=== PATIENT | female | born 1955 | race Caucasian/White ===

== ENCOUNTER 2018-01-18 11:16 | Emergency (ER) | payer BC ==
[~2018-01-18] VITALS: Ht 149.9 cm; Wt 79.4 kg
[~2018-01-18 11:16] MED LIST: ESOM20CA PO; SERT25TA PO
[2018-01-18 12:31] LABS: BASO # 0.1 x10^3/uL (0.0-0.2); BASO % 1 % (0-3); EOS % 0 % (0-3); HEMATOCRIT 30.9 % (36.0-47.0); HEMOGLOBIN 10.3 g/dL (12.0-15.5); LYMPH # 3.7 x10^3/uL (1.0-4.8); LYMPH % 57 % (24-48); MEAN CORPUSCULAR HEMOGLOBIN 27 pg (25-35); MEAN CORPUSCULAR HGB CONC 33 g/dL (31-37); MEAN CORPUSCULAR VOLUME 80 fL (79-100); MONO # 0.4 x10^3/uL (0.0-1.1); MONO % 6 % (0-9); NEUT # 2.4 x10^3uL (1.8-7.7); NEUT % 36 % (31-73); PLATELET COUNT 221 x10^3/uL (140-400); RED BLOOD COUNT 3.88 x10^6/uL (3.50-5.40); RED CELL DISTRIBUTION WIDTH 21.3 % (11.5-14.5); WHITE BLOOD COUNT 6.6 x10^3/uL (4.0-11.0)
--- NOTE | 2018-01-18 12:39 | PHYS DOC ---
Past Medical History Past Medical History: No Pertinent History Additional Past Surgical Histo: BREAST REDUCTION/IMPLANTS Alcohol Use: None Drug Use: None Adult General Chief Complaint Chief Complaint: NAUSEA/VOMITING/DIARRHA HPI HPI 62-year-old female presenting the emergency department today with nausea and diarrhea for approximately 2 weeks. She was taking methotrexate prior to her symptoms starting. She then saw her doctor took her off of the methotrexate. She continues to have symptoms. She has had a low-grade temperature at home and has one here. She denies abdominal pain chest pain or any pain. She generally feels weak and malaise. Her diarrhea is nonbloody. She denies recent antibiotic use. She denies any previous abdominal surgeries. Review of systems is negative for chest pain shortness of breath cough headache neck stiffness. All other review of systems is negative unless otherwise noted in history of present illness. ED course: 62-year-old female presenting to the emergency department today with nausea and malaise and diarrhea. On arrival she has a mild low-grade temperature. Heart rate within normal limits. Blood work sent along with CT abdomen pelvis ordered. CBC shows normal white count. Hemoglobin at 10. No baseline for comparison. Patient reports being on iron pill though on the past. Chemistry panel shows mildly low potassium. Urinalysis shows mild dehydration. CT abdomen pelvis negative for acute pathology. On reexamination the patient is feeling better. We will discharge the patient home to follow up with PCP in 2-3 days. The patient has been examined and was not found to have an emergency medical condition. The patient was then discharged home in stable condition to follow up with their primary care physician over the next 2-3 days. They were to return if their symptoms worsened or if they were concerned for any reason. They were also instructed to return to the emergency department if they were unable to get the recommended and appropriate follow-up. [id number] discharge instructions and return precautions were given. Patient's questions were answered to their satisfaction. Patient is comfortable with plan. Review of Systems Review of Systems SEE ABOVE. Current Medications Current Medications Current Medications Medications (Trade) Dose Ordered Sig/Flores Start Time Stop Time Status Last Admin Dose Admin Info (CONTRAST GIVEN -- Rx MONITORING) 1 each PRN DAILY PRN 01/18/18 13:15 01/20/18 13:14 Iohexol (Omnipaque 300 Mg/ml) 75 ml 1X ONCE 01/18/18 13:15 01/18/18 13:16 DC 01/18/18 13:29 75 ML Ondansetron HCl (Zofran) 4 mg 1X ONCE 01/18/18 12:45 01/18/18 12:46 DC 01/18/18 12:54 4 MG Sodium Chloride 500 ml @ 500 mls/hr 1X ONCE 01/18/18 12:45 01/18/18 13:44 DC 01/18/18 12:54 500 MLS/HR Allergies Allergies Allergies Coded Allergies Type Severity Reaction Last Updated Verified No Known Drug Allergies 12/10/15 No Physical Exam Physical Exam SEE ABOVE Constitutional: Well developed, well nourished, no acute distress, non-toxic appearance. [] HENT: Normocephalic, atraumatic, bilateral external ears normal, oropharynx moist, no oral exudates, nose normal. [] Eyes: PERRLA, EOMI, conjunctiva normal, no discharge. [] Neck: Normal range of motion, no tenderness, supple, no stridor. [] Cardiovascular:Heart rate regular rhythm, no murmur [] Lungs & Thorax: Bilateral breath sounds clear to auscultation [] Abdomen: Bowel sounds normal, soft, no tenderness, no masses, no pulsatile masses. Nondistended. No rebound tenderness. no guarding. Skin: Warm, dry, no erythema, no rash. [] Back: No tenderness, no CVA tenderness. [] Extremities: No tenderness, no cyanosis, no clubbing, ROM intact, no edema. [] Neurologic: Alert and oriented X 3, normal motor function, normal sensory function, no focal deficits noted. [] Psychologic: Affect normal, judgement normal, mood normal. [] Current Patient Data Vital Signs Vital Signs Date Time Temp Pulse Resp B/P (MAP) Pulse Ox O2 Delivery O2 Flow Rate FiO2 01/18/18 15:48 82 20 108/54 (72) 94 Room Air 01/18/18 11:51 100.1 100.1 Lab Values Laboratory Tests Test 01/18/18 12:15 01/18/18 15:34 White Blood Count 6.6 x10^3/uL (4.0-11.0) Red Blood Count 3.88 x10^6/uL (3.50-5.40) Hemoglobin 10.3 g/dL (12.0-15.5) L Hematocrit 30.9 % (36.0-47.0) L Mean Corpuscular Volume 80 fL (79-100) Mean Corpuscular Hemoglobin 27 pg (25-35) Mean Corpuscular Hemoglobin Concent 33 g/dL (31-37) Red Cell Distribution Width 21.3 % (11.5-14.5) H Platelet Count 221 x10^3/uL (140-400) Neutrophils (%) (Auto) 36 % (31-73) Lymphocytes (%) (Auto) 57 % (24-48) H Monocytes (%) (Auto) 6 % (0-9) Eosinophils (%) (Auto) 0 % (0-3) Basophils (%) (Auto) 1 % (0-3) Neutrophils # (Auto) 2.4 x10^3uL (1.8-7.7) Lymphocytes # (Auto) 3.7 x10^3/uL (1.0-4.8) Monocytes # (Auto) 0.4 x10^3/uL (0.0-1.1) Eosinophils # (Auto) 0.0 x10^3/uL (0.0-0.7) Basophils # (Auto) 0.1 x10^3/uL (0.0-0.2) Segmented Neutrophils % 36 % (35-66) Band Neutrophils % 9 % (0-9) Lymphocytes % 26 % (24-48) Atypical Lymphocytes % (Manual) 25 % (0-0) H Monocytes % 4 % (0-10) Platelet Estimate Adequate (ADEQUATE) Large Platelets Present Anisocytosis Present Sodium Level 138 mmol/L (136-145) Potassium Level 3.2 mmol/L (3.5-5.1) L Chloride Level 101 mmol/L (98-107) Carbon Dioxide Level 27 mmol/L (21-32) Anion Gap 10 (6-14) Blood Urea Nitrogen 10 mg/dL (7-20) Creatinine 0.7 mg/dL (0.6-1.0) Estimated GFR (Cockcroft-Gault) 84.5 Glucose Level 119 mg/dL (70-99) H Calcium Level 8.4 mg/dL (8.5-10.1) L Total Bilirubin 0.4 mg/dL (0.2-1.0) Direct Bilirubin 0.1 mg/dL (0.0-0.2) Aspartate Amino Transferase (AST) 49 U/L (15-37) H Alanine Aminotransferase (ALT) 55 U/L (14-59) Alkaline Phosphatase 73 U/L (46-116) Total Protein 6.5 g/dL (6.4-8.2) Albumin 2.9 g/dL (3.4-5.0) L Urine Collection Type Unknown Urine Color Yellow Urine Clarity Clear Urine pH 6.0 Urine Specific [place] >=1.030 Urine Protein 30 mg/dL (NEG-TRACE) Urine Glucose (UA) Negative mg/dL (NEG) Urine Ketones (Stick) Negative mg/dL (NEG) Urine Blood Negative (NEG) Urine Nitrite Negative (NEG) Urine Bilirubin Negative (NEG) Urine Urobilinogen Dipstick 0.2 mg/dL (0.2 mg/dL) Urine Leukocyte Esterase Negative (NEG) Urine RBC 0 /HPF (0-2) Urine WBC 1-4 /HPF (0-4) Urine Squamous Epithelial Cells Mod /LPF Urine Bacteria Few /HPF (0-FEW) Urine Mucus Slight /LPF Laboratory Tests 01/18/18 12:15 Laboratory Tests 01/18/18 12:15 EKG EKG [] Radiology/Procedures Radiology/Procedures [] Course & Med Decision Making Course & Med Decision Making Pertinent Labs and Imaging studies reviewed. (See chart for details) [] Dragon Disclaimer Dragon Disclaimer This electronic medical record was generated, in whole or in part, using a voice recognition dictation system. Departure Departure Impression: Primary Impression: Diarrhea Additional Impressions: Malaise Dehydration Hypokalemia Disposition: 01 HOME, SELF-CARE Condition: STABLE Referrals: CRYSTAL BETANCUR MD (PCP) Scripts Potassium Chloride (POTASSIUM CHLORIDE) 10 Meq Tab.sr.24h 10 MEQ PO DAILY for 5 Days, #5 TAB.SR Prov: ARRON JIN MD 01/18/18 Problem Qualifiers ARRON JIN MD Jan 18, 2018 12:39
[2018-01-18 12:45] LABS: CALCIUM 8.4 mg/dL (8.5-10.1); CREATININE 0.7 mg/dL (0.6-1.0); GFR 84.5; POTASSIUM 3.2 mmol/L (3.5-5.1)
[2018-01-18] MEDS ORDERED: ONDANSETRON PF 4 MG/2 ML VIAL. IV ONE (12:45)
[2018-01-18] MEDS ORDERED: IV NORMAL SALINE 500ML BAG 500 ML IV ONE (12:45)
[2018-01-18 12:50] LABS: ALBUMIN 2.9 g/dL (3.4-5.0); DIRECT BILIRUBIN 0.1 mg/dL (0.0-0.2); TOTAL BILIRUBIN 0.4 mg/dL (0.2-1.0); TOTAL PROTEIN 6.5 g/dL (6.4-8.2)
[2018-01-18] MEDS ORDERED: IOHEXOL 300 MG/ML 100ML VIAL. IV ONE (13:15)
[2018-01-18] MEDS ORDERED: CONTRAST GIVEN. MC PRN (13:15)
[2018-01-18 13:21] LABS: % ATYL 25 % (0-0); % BANDS 9 % (0-9); % LYMPHS 26 % (24-48); % MONOS 4 % (0-10); % SEGS 36 % (35-66); PLT ESTIMATE ADEQUATE (ADEQUATE)
[2018-01-18 13:28] LABS: ANISOCYTOSIS PRESENT
--- NOTE | 2018-01-18 13:49 | RAD ---
CT scan of the abdomen and pelvis with contrast 01/18/2018 CLINICAL HISTORY: Nausea, vomiting and diarrhea with fevers TECHNIQUE: After the intravenous administration of 75 cc of Omnipaque 300, contiguous, 5 mm axial sections were obtained through abdomen and pelvis. 75 cc of Omnipaque 300 were administered intravenously during this examination. One or more of the following individualized dose reduction techniques were utilized for this study: 1. Automated exposure control. 2. Adjustment of the mA and/or kV according to patient size. 3. Use of iterative reconstruction technique. FINDINGS: Comparison is made to an ultrasound of the right upper quadrant of the abdomen dated 12/07/2015. The absence of oral contrast material limits the study for the detection of bowel pathology. Images through the lung bases demonstrate minimal dependent subsegmental atelectasis bilaterally. The liver is mildly enlarged measuring 22 cm in length. Decreased attenuation of the brain liver parenchyma is seen consistent with fatty infiltration. The spleen is mildly enlarged measuring 16.4 cm in greatest diameter. The pancreas, adrenal glands and kidneys are within normal limits. Atherosclerotic calcification of the abdominal aorta is seen. The abdominal aorta tapers normally. Small calcified gallstones are seen within the gallbladder. The gallbladder slightly contracted. No free fluid or free air is within the abdomen. There is no evidence of bowel obstruction. Scattered diverticula are seen involving the colon. No inflammatory changes are seen in the adjacent fat. The appendix is well-visualized and is within normal limits. Images through the pelvis demonstrate the urinary bladder to be slightly contracted. A 1.4 cm calcification is seen within the anterior uterine body consistent with a fibroid. No adnexal mass is seen. Calcifications are seen within the pelvis consistent with phleboliths. No free fluid is noted. Degenerative changes are seen involving the thoracic and throughout the lumbar spine and both hips. IMPRESSION: No acute abnormality is seen. Electronically signed by: Jm Orona MD (01/18/2018 1:46 PM) [id number]
[2018-01-18 15:43] LABS: BILIRUBIN,URINE NEGATIVE (NEG); CLARITY,URINE CLEAR; COLOR,URINE YELLOW; NITRITE,URINE NEGATIVE (NEG); PROTEIN,URINE 30 mg/dL (NEG-TRACE); UROBILINOGEN,URINE 0.2 mg/dL (0.2 mg/dL)
[2018-01-18 16:10] LABS: BACTERIA,URINE FEW /HPF (0-FEW); RBC,URINE 0 /HPF (0-2); SQUAMOUS EPITHELIAL CELL,UR MOD /LPF
[2018-01-18 16:48] VITALS: BP 110/51
[2018-01-18] MEDS ORDERED: POTA10TA12 PO (16:54)
== END 2018-01-18 17:00 | disposition home or self-care (01) ==
LOC: ER 11:16
DX: R19.7 Diarrhea, unspecified (principal); E86.0 Dehydration; E87.6 Hypokalemia; R53.81 Other malaise; Z98.82 Breast implant status
CPT/HCPCS: 36415; 74177; 80048; 80076; 81001; 85007; 85025; 96361; 96374; 99285; J2405; J7040; Q9967

== ENCOUNTER → 2018-09-19 | Outpatient (CLI) | payer BC ==
[~2018-09-19] MED LIST changes: +POTA10TA12 PO
--- NOTE | 2018-09-19 15:30 | KCIC ---
Bilateral digital screening mammograms with 3-D tomosynthesis: Reason for examination: Routine screening. Comparison is made to previous study dated 03/23/2015. Bilateral mammograms in CC and oblique projections were obtained with 2-D imaging and 3-D tomosynthesis imaging on a [employer] unit and reviewed on the workstation. Interpretation was made with the benefit of CAD. The skin and nipples show no abnormalities. No abnormal axillary lymph nodes are seen. Bilateral breast implants remain present. Bulging is again seen at the inferior aspect of the right breast implant. The breast parenchyma is predominantly fatty. (Breast density: Category A.) There are no dominant masses, suspicious calcifications or architectural distortion. Impression: No evidence of malignancy. Recommend routine screening. BI-RAD Category 1: Negative. "Our facility is accredited by the [employer] Mammography Program." This patient's information has been entered into a reminder system for the patient to be notified with the results of her examination and a target date for the next mammogram. Electronically signed by: Dot Quintero MD (09/19/2018 3:27 PM) [id number]
== END | disposition home or self-care (01) ==
LOC: KCIC MAMMO 12:13
PROVIDERS: ATTEND Family Medicine
DX: Z12.31 Encounter for screening mammogram for malignant neoplasm of breast (principal); Z98.82 Breast implant status
CPT/HCPCS: 77063; 77067

== ENCOUNTER 2019-01-11 22:49 | Inpatient (IN) | payer MEDICARE, BC ==
[~2019-01-11] VITALS: Ht 180.3 cm; Wt 93.2 kg
[2019-01-12] MEDS ORDERED: IV NORMAL SALINE 1000ML BAG 1,000 ML IV ONE (00:15)
[2019-01-12] MEDS ORDERED: fentaNYL PF VIAL 100 MCG/2 ML VIAL IVP ONE (00:15)
[2019-01-12] MEDS ORDERED: ONDANSETRON PF 4 MG/2 ML VIAL. IV ONE (00:15)
--- NOTE | 2019-01-12 00:49 | PHYS DOC ---
Past Medical History Past Medical History: Anxiety, GERD Past Surgical History: No Surgical History Additional Past Surgical Histo: BREAST REDUCTION/IMPLANTS Alcohol Use: None Drug Use: None Adult General Chief Complaint Chief Complaint: LOWER EXTREMITY SWELLING HPI HPI Patient is a 63 year old female who presents with states for the last 3 days she's noticed her left leg having redness with non-open blisters to the lower chaudhary and 2+ swelling. Patient states the leg is now very painful with burning and itching. Patient denies any injury or wound or bite to leg. States her only history of psoriasis and depression. Review of Systems Review of Systems Constitutional: fever or chills [] Integument: Cellulitis to left leg. Denies rash or skin lesions [] All other systems were reviewed and found to be within normal limits, except as documented in this note. Current Medications Current Medications Current Medications Medications (Trade) Dose Ordered Sig/Folres Start Time Stop Time Status Last Admin Dose Admin Fentanyl Citrate (Fentanyl 2ml Vial) 50 mcg 1X ONCE 01/12/19 00:15 01/12/19 00:16 DC Ondansetron HCl (Zofran) 4 mg 1X ONCE 01/12/19 00:15 01/12/19 00:16 DC 01/12/19 00:44 4 MG Sodium Chloride 1,000 ml @ 1,000 mls/hr 1X ONCE 01/12/19 00:15 01/12/19 01:14 DC 01/12/19 00:44 1,000 MLS/HR Vancomycin HCl (Vanco Per Pharmacy) 1 each PRN DAILY PRN 01/12/19 01:00 UNV Vancomycin HCl 1.75 gm/Sodium Chloride 500 ml @ 250 mls/hr 1X ONCE 01/12/19 01:00 01/12/19 02:59 Allergies Allergies Allergies Coded Allergies Type Severity Reaction Last Updated Verified No Known Drug Allergies 12/10/15 No Physical Exam Physical Exam Constitutional: Well developed, well nourished, no acute distress, non-toxic appearance. [] Cardiovascular:Heart rate regular rhythm, no murmur [] Lungs & Thorax: Bilateral breath sounds clear to auscultation [] Abdomen: Bowel sounds normal, soft, no tenderness, no masses, no pulsatile masses. [] Skin: Cellulitis to left lower leg that extends to medial knee. Warm, dry, no erythema, no rash. [] Extremities: Low left leg tenderness, no cyanosis, no clubbing, ROM intact, Left low leg edema. [] Neurologic: Alert and oriented X 3, normal motor function, normal sensory function, no focal deficits noted. [] Psychologic: Affect normal, judgement normal, mood normal. [] Current Patient Data Vital Signs Vital Signs Date Time Temp Pulse Resp B/P (MAP) Pulse Ox O2 Delivery O2 Flow Rate FiO2 01/12/19 00:30 78 16 150/87 (108) 96 Room Air 01/11/19 23:25 99.6 99.6 Lab Values Laboratory Tests Test 01/12/19 00:20 White Blood Count 9.0 x10^3/uL (4.0-11.0) Red Blood Count 4.24 x10^6/uL (3.50-5.40) Hemoglobin 11.5 g/dL (12.0-15.5) L Hematocrit 35.0 % (36.0-47.0) L Mean Corpuscular Volume 82 fL (79-100) Mean Corpuscular Hemoglobin 27 pg (25-35) Mean Corpuscular Hemoglobin Concent 33 g/dL (31-37) Red Cell Distribution Width 15.4 % (11.5-14.5) H Platelet Count 307 x10^3/uL (140-400) Neutrophils (%) (Auto) 70 % (31-73) Lymphocytes (%) (Auto) 22 % (24-48) L Monocytes (%) (Auto) 7 % (0-9) Eosinophils (%) (Auto) 1 % (0-3) Basophils (%) (Auto) 0 % (0-3) Neutrophils # (Auto) 6.4 x10^3/uL (1.8-7.7) Lymphocytes # (Auto) 2.0 x10^3/uL (1.0-4.8) Monocytes # (Auto) 0.6 x10^3/uL (0.0-1.1) Eosinophils # (Auto) 0.1 x10^3/uL (0.0-0.7) Basophils # (Auto) 0.0 x10^3/uL (0.0-0.2) Laboratory Tests 01/12/19 00:20 EKG EKG [] Radiology/Procedures Radiology/Procedures [] Impressions: [facility] [address] [place] [address] IMAGING REPORT Signed PATIENT: MAU AYALA EACCOUNT: [id number] : 1955 LOCATION: ER AGE: 63 SEX: F EXAM STATUS: REG ER ORD. PHYSICIAN: JUAN PABLO ARMENDARIZ APRN REASON: swelling, pain PROCEDURE: VENOUS LOWER EXTREMITY LEFT Ultrasound venous Doppler INDICATION:Left leg pain, redness and swelling. TECHNIQUE: Grayscale, color Doppler and spectral waveform ultrasound images of the lower extremities deep veins obtained. COMPARISON: None FINDINGS: The interrogated deep veins are compressible and demonstrate evidence of blood flow with normal respiratory variation and response to augmentation. Mildly enlarged left groin lymph nodes are seen most likely reactive. IMPRESSION: No sonographic evidence of acute DVT of the left lower extremity deep veins. Electronically signed by: Yong Rehman DO (01/12/2019 12:45 AM) [facility] DICTATED and SIGNED BY: YONG REHMAN DO DATE: 01/12/19 0045 Course & Med Decision Making Course & Med Decision Making Patient has redness to the left leg that it extends up to the knee. 2+ swelling. Pedal pulses are present. Cap refill less than 3 seconds. There is tenderness to the whole lower leg redness also extends around the whole lower leg. There is no draining fluid. Patient states she's been running a fever and she is nauseated. Patient denies vomiting, abdominal pain, diarrhea, shortness of air, chest pain, dizziness, headache. Patient is ambulatory with a steady gait but the left leg is very painful. Clear to auscultation all lobes. Patient rates her pain a 10 out of 10. Patients temperature is 99.6. Have spoken to Dr. Betancur for admission. I started the patient on vancomycin antibiotic and fluids. Patient refusing any pain medication at this time. I have also reported this patient off to Dr. Soria has not all the lab results are back at this time. Dragon Disclaimer Dragon Disclaimer This electronic medical record was generated, in whole or in part, using a voice recognition dictation system. Departure Departure Impression: Primary Impression: Cellulitis Disposition: ADMITTED INPATIENT Admitting Physician: Lorenzo, Crystal Condition: STABLE Referrals: CRYSTAL BETANCUR MD (PCP) Problem Qualifiers Primary Impression: Cellulitis Site of cellulitis: extremity Site of cellulitis of extremity: lower extremity Laterality: left Qualified Codes: L03.116 - Cellulitis of left lower limb JUAN PABLO ARMENDARIZ APRN Jan 12, 2019 00:49
[2019-01-12 00:50] LABS: BASO % 0 % (0-3); EOS # 0.1 x10^3/uL (0.0-0.7); EOS % 1 % (0-3); HEMOGLOBIN 11.5 g/dL (12.0-15.5); LYMPH % 22 % (24-48); MEAN CORPUSCULAR HEMOGLOBIN 27 pg (25-35); MEAN CORPUSCULAR HGB CONC 33 g/dL (31-37); MEAN CORPUSCULAR VOLUME 82 fL (79-100); MONO # 0.6 x10^3/uL (0.0-1.1); MONO % 7 % (0-9); NEUT # 6.4 x10^3/uL (1.8-7.7); NEUT % 70 % (31-73); PLATELET COUNT 307 x10^3/uL (140-400); RED BLOOD COUNT 4.24 x10^6/uL (3.50-5.40); RED CELL DISTRIBUTION WIDTH 15.4 % (11.5-14.5)
[2019-01-12] MEDS ORDERED: VANCOMYCIN 1.75 GM in IV NORMAL SALINE 500ML BAG 500 ML IV ONE (01:00)
[2019-01-12] MEDS ORDERED: VANCOMYCIN PER PHARMACY MC PRN (01:00)
[2019-01-12] MEDS ORDERED: fentaNYL PF VIAL 100 MCG/2 ML VIAL IV PRN (01:15)
[2019-01-12] MEDS ORDERED: ACETAMINOPHEN 325 MG TABLET. PO PRN (01:15)
[2019-01-12] MEDS ORDERED: ONDANSETRON PF 4 MG/2 ML VIAL. IV PRN (01:15)
[2019-01-12 01:45] LABS: CALCIUM 9.5 mg/dL (8.5-10.1); CREATININE 0.6 mg/dL (0.6-1.0); GFR 100.6; POTASSIUM 4.1 mmol/L (3.5-5.1)
[2019-01-12 01:52] LABS: ALBUMIN 3.7 g/dL (3.4-5.0); ALBUMIN/GLOBULIN RATIO 0.9 (1.0-1.7); TOTAL BILIRUBIN 0.5 mg/dL (0.2-1.0); TOTAL PROTEIN 7.8 g/dL (6.4-8.2)
--- NOTE | 2019-01-12 02:05 | NUR ---
Pt. arrived on unit at 0205 by wheelchair with Mikhail. Pt. is A&Ox4, on RA & VSS. Pt. rates pain 4/10 but refuses any pain medication. Assessment done at this time. Pt.'s will stay the rest of the night. WIll continue to monitor.
--- NOTE | 2019-01-12 02:26 | NUR ---
Currently uses e-cigarettes but trying to quit. Addendum: 01/12/19 at 0238 by WINSOME ZIMMERMAN RN Amended: Links added.
[2019-01-12 02:41] VITALS: BP 141/56
--- NOTE | 2019-01-12 03:00 | NUR ---
Pharmacy Vancomycin Dosing Note S:Consulted to monitor and dose vancomycin started 01/12/19. O:MAU AYALA is a 63 year old F with Cellulitis . Height: 5 feet, 11 inches Weight: 93.510585 kg [place] Body Weight: 70.80 Adjusted Body Weight: 79.68 Dosing Weight: Actual Other Antibiotics: LABS: Last BUN: 14 Last Creatinine: 0.6 Creatinine Clearance: 119 mL/min Last WBC: 9.0 Last Procalcitonin: Tmax (past 24 hours): Microbiology: I/O: Drug Levels: Last level: on at Last dose given at Vancomycin Dosing: Loading Dose: 1750 mg x1 01/12/19 0115 Dosing Weight: Actual Target Trough: 10-20 A: Based on: Aactual Wt and CrCl P: 1. 1330 Vancomycin 1500 mg IV q12h 2. Follow up Trough level on 01/13/19 at 1300 3. Pharmacy will continue to monitor, follow and adjust therapy as needed. DES AGUILAR RPH, 01/12/19 0300 Signed: 01/12/19 at 0301 by DES AGUILAR RPH PHA
[2019-01-12 07:00] VITALS: BP 133/69
[2019-01-12] MEDS ORDERED: FLU VAX QS 2019-20 (36MOS+)/PF 0.5 ML SYRINGE. VAX IM ONE (09:00)
[2019-01-12] MEDS: PANTOPRAZOLE 40 MG TABLET.DR. PO SCH (09:06)
[2019-01-12] MEDS: SERTRALINE 25 MG TABLET. PO SCH (09:06)
--- NOTE | 2019-01-12 10:16 | HP ---
ADMIT DATE: 01/12/2019 CHIEF COMPLAINT AND HISTORY OF PRESENT ILLNESS: This 63-year-old white female, patient of Dr. Crystal Betancur had the onset of left leg redness in the calf area 2-3 days prior to admission. It continued to spread. She developed fevers, chills, sweats as well as burning and itching at the site. She denies any history of wound, does have psoriasis, but no significant psoriasis other than part of her body where the cellulitis is of her lower leg. She was found to have cellulitis and admitted for IV antibiotics. PAST MEDICAL HISTORY: Remarkable for the psoriasis, anxiety, GERD. PAST SURGICAL HISTORY: She has had prior breast reduction with implants. MEDICATIONS: Brought with the patient, listed on the computer and have been addressed. ALLERGIES: SHE IS ALLERGIC TO METHOTREXATE. SOCIAL HISTORY: Noncontributory. FAMILY HISTORY: Noncontributory. REVIEW OF SYSTEMS: As mentioned above. PHYSICAL EXAMINATION: GENERAL: She is a well-developed, well-nourished white female, in no acute distress. is present during the exam. HEAD, EYES, EARS, NOSE AND THROAT: Unremarkable. NECK: Supple, without adenopathy or thyromegaly. CHEST: Clear to auscultation and percussion. HEART: Regular rate and rhythm without S3, S4 or murmur. ABDOMEN: Soft, nontender, without hepatosplenomegaly or masses. EXTREMITIES: Reveal cellulitis, left lower leg that extends up to the knee and into the thigh, probably 3-4 inches in addition. NEUROLOGIC: She is intact. LABORATORY DATA: Initial imaging in the Emergency Room is remarkable for an ultrasound of the left lower extremity, ruling out a DVT. White count is 9000 on admission with a relatively normal differential. Chemistry panel other than a blood sugar of 166 is unremarkable. Lactic acid was 1.9. IMPRESSION: Cellulitis of the left lower extremity with fevers, chills, etc. PLAN: The patient has been admitted, broad spectrum antibiotics will be ongoing and the patient will be monitored, managed and treated appropriately. SATHYA AVITIA MD DR: SEBASTIAN/marco a JOB#: [id number] / [id number] ecc CRYSTAL BETANCUR MD
--- NOTE | 2019-01-12 10:52 | PDOC ---
Infectious Disease Note Subjective: Subjective Pt seen and examined Vital Signs: Vital Signs Vital Signs Date Time Temp Pulse Resp B/P (MAP) Pulse Ox O2 Delivery O2 Flow Rate FiO2 01/12/19 07:00 98.7 77 16 133/69 (90) 92 Room Air 98.7 Medications: Inpatient Meds: Current Medications Medications (Trade) Dose Ordered Sig/Flores Start Time Stop Time Status Last Admin Dose Admin Acetaminophen (Tylenol) 650 mg PRN Q4HRS PRN 01/12/19 01:15 01/13/19 01:14 Fentanyl Citrate (Fentanyl 2ml Vial) 50 mcg PRN Q1HR PRN 01/12/19 01:15 01/13/19 01:14 Influenza Virus Vaccine Quadrival (Afluria Quad 2019-20 (3yr Up) Syringe) 0.5 ml ONCE ONCE 01/12/19 09:00 01/12/19 09:01 DC 01/12/19 09:09 0.5 ML Ondansetron HCl (Zofran) 4 mg PRN Q8HRS PRN 01/12/19 01:15 01/13/19 01:14 Pantoprazole Sodium (Protonix) 40 mg DAILYAC 01/12/19 07:30 01/12/19 09:06 40 MG Sertraline HCl (Zoloft) 25 mg DAILY 01/12/19 09:00 01/12/19 09:06 25 MG Sodium Chloride 1,000 ml @ 1,000 mls/hr 1X ONCE 01/12/19 00:15 01/12/19 01:14 DC 01/12/19 00:44 1,000 MLS/HR Vancomycin HCl (Vanco Per Pharmacy) 1 each PRN DAILY PRN 01/12/19 01:00 01/12/19 02:57 1 EACH Vancomycin HCl (Vancomycin Trough Level) 1 each 1X ONCE 01/13/19 13:00 01/13/19 13:01 Vancomycin HCl 1.5 gm/Sodium Chloride 500 ml @ 250 mls/hr Q12H 01/12/19 13:30 01/12/19 10:49 DC Vancomycin HCl 1.75 gm/Sodium Chloride 500 ml @ 250 mls/hr 1X ONCE 01/12/19 01:00 01/12/19 02:59 DC 01/12/19 01:15 250 MLS/HR Labs: Lab Laboratory Tests Test 01/12/19 00:20 White Blood Count 9.0 x10^3/uL (4.0-11.0) Red Blood Count 4.24 x10^6/uL (3.50-5.40) Hemoglobin 11.5 g/dL (12.0-15.5) Hematocrit 35.0 % (36.0-47.0) Mean Corpuscular Volume 82 fL (79-100) Mean Corpuscular Hemoglobin 27 pg (25-35) Mean Corpuscular Hemoglobin Concent 33 g/dL (31-37) Red Cell Distribution Width 15.4 % (11.5-14.5) Platelet Count 307 x10^3/uL (140-400) Neutrophils (%) (Auto) 70 % (31-73) Lymphocytes (%) (Auto) 22 % (24-48) Monocytes (%) (Auto) 7 % (0-9) Eosinophils (%) (Auto) 1 % (0-3) Basophils (%) (Auto) 0 % (0-3) Neutrophils # (Auto) 6.4 x10^3/uL (1.8-7.7) Lymphocytes # (Auto) 2.0 x10^3/uL (1.0-4.8) Monocytes # (Auto) 0.6 x10^3/uL (0.0-1.1) Eosinophils # (Auto) 0.1 x10^3/uL (0.0-0.7) Basophils # (Auto) 0.0 x10^3/uL (0.0-0.2) Sodium Level 138 mmol/L (136-145) Potassium Level 4.1 mmol/L (3.5-5.1) Chloride Level 102 mmol/L (98-107) Carbon Dioxide Level 23 mmol/L (21-32) Anion Gap 13 (6-14) Blood Urea Nitrogen 14 mg/dL (7-20) Creatinine 0.6 mg/dL (0.6-1.0) Estimated GFR (Cockcroft-Gault) 100.6 BUN/Creatinine Ratio 23 (6-20) Glucose Level 166 mg/dL (70-99) Lactic Acid Level 1.9 mmol/L (0.4-2.0) Calcium Level 9.5 mg/dL (8.5-10.1) Total Bilirubin 0.5 mg/dL (0.2-1.0) Aspartate Amino Transf (AST/SGOT) 37 U/L (15-37) Alanine Aminotransferase (ALT/SGPT) 58 U/L (14-59) Alkaline Phosphatase 97 U/L (46-116) Total Protein 7.8 g/dL (6.4-8.2) Albumin 3.7 g/dL (3.4-5.0) Albumin/Globulin Ratio 0.9 (1.0-1.7) Objective: Assessment: ID consult dictated [id number] IMP LLE cellulitis Psoriasis depression Plan: Plan of Care dc vanc start cefazolin and zyvox elevate leg thank you HYACINTH MCMULLEN MD Jan 12, 2019 10:52
[2019-01-12 11:00] VITALS: BP 108/60
--- NOTE | 2019-01-12 11:30 | CONS ---
DATE OF CONSULTATION: 01/12/2019 REFERRING PHYSICIAN: Dr. Santos. REASON FOR CONSULTATION: Left lower extremity cellulitis. HISTORY OF PRESENT ILLNESS: A 63-year-old female who presented to the ER on 01/12/2019 with complaints of redness, swelling, pain going from the left calf up to the thigh 3 days ago. They started getting more swollen and painful with itching. She denies any history of injury. She had low-grade fevers, no chills. No nausea, vomiting, diarrhea, abdominal pain. No outdoor activities. No water activities. She has underlying history of psoriasis for which she is not on any disease modifying agent. She also has a history of depression. The patient received a dose of vancomycin and underwent ultrasound of the lower extremities, which was negative for DVT. White count was normal at 9.0. ID consult has been requested for antibiotic management. Today, the patient states she still has swelling, redness, pain with some itching. She denies any history of skin and soft tissue infections in the past. PAST MEDICAL HISTORY: Psoriasis, anxiety, GERD. PAST SURGICAL HISTORY: Breast reduction with implants. CURRENT MEDICATION: IV vancomycin. Other medications reviewed in medication list. ALLERGIES: SHE IS ALLERGIC TO METHOTREXATE. SOCIAL HISTORY: Denies smoking, used to smoke in the past, quit a couple of years ago. No alcohol. 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 FAMILY HISTORY: As per HPI. REVIEW OF SYSTEMS: Negative except for above in HPI. PHYSICAL EXAMINATION: VITAL SIGNS: Temperature 98.7, T-max 99.6, pulse 77, respiratory rate is 16, blood pressure 133/69, oxygen saturation 92% on room air. GENERAL: Alert, oriented x 3, pleasant female, lying in bed comfortably, in no acute distress, nontoxic appearing. HEENT: Normocephalic, atraumatic, anicteric. No thrush. Oral mucosa moist. NECK: Supple, no JVD. LUNGS: Clear bilaterally. No wheezing. HEART: S1, S2. No gallops or murmurs. ABDOMEN: Soft, nontender, nondistended. EXTREMITIES: Left lower extremity redness, tenderness, erythema going up from the calf up to the thigh medially. No lower abdominal area involved. There are redness with patches over the lateral aspect of the leg, which the patient has not had before. No other open wounds noted. DERMATOLOGIC: Warm and dry. Multiple psoriatic patches over the elbows, hands, palmar aspect of the hands and leg including plantar aspect of the left leg. NEUROLOGIC: Alert and oriented x 3, grossly nonfocal. PSYCHIATRIC: Cooperative, appropriate mood and affect. LABORATORY DATA: WBC 9.0, hemoglobin 11.5, hematocrit 35.0, platelets 307, neutrophils 70. Sodium 138, potassium 4.1, chloride 102, bicarbonate 23, BUN 14, creatinine 0.6, glucose 166. Lactate 1.9. LFTs within normal limits. IMAGING: Doppler ultrasound of the lower extremity, negative for DVT. IMPRESSION: 1. Left lower extremity cellulitis. 2. History of psoriasis, not on disease modifying agent. 3. History of ALLERGIES TO METHOTREXATE. 4. Depression, on sertraline. RECOMMENDATIONS: 1. Discontinue vancomycin. 2. Start cefazolin 1 gram IV every 8 hours. 3. Elevate left lower extremity. 4. Follow up labs and cultures. 5. Continue supportive care. 6. Discussed with RN. 7. Start cefazolin and Zyvox. Monitor closely as the patient is on low dose sertraline, latter is just for a couple of days. Thank you, Dr. Santos for consulting Infectious Disease to participate in this patient's care. If you have any questions, do not hesitate to contact us. HYACINTH MCMULLEN MD DR: DANIELA/marco a JOB#: [id number] / [id number] JOESPHD
[2019-01-12] MEDS: ceFAZolin SODIUM 1 GM in IV DEXTROSE 5% 50 ML IV SCH ×2 (13:11→21:48)
[2019-01-12] MEDS: LINEZOLID 600 MG TABLET PO SCH ×2 (13:11→21:48)
[2019-01-12] MEDS ORDERED: VANCOMYCIN 1.5 GM in IV NORMAL SALINE 500ML BAG 500 ML IV SCH (13:30)
[2019-01-12 14:57] VITALS: BP 110/62
[2019-01-12 19:00] VITALS: BP 126/51
[2019-01-12] MEDS: LACTOBACILLUS RHAMNOSUS GG 1 CAPSULE. PO SCH (21:47)
[2019-01-12 23:06] VITALS: BP 127/63
[2019-01-13 03:07] VITALS: BP 123/67
[2019-01-13] MEDS: PANTOPRAZOLE 40 MG TABLET.DR. PO SCH (06:03)
[2019-01-13] MEDS: ceFAZolin SODIUM 1 GM in IV DEXTROSE 5% 50 ML IV SCH (06:03)
[2019-01-13 07:00] VITALS: BP 138/46
[2019-01-13] MEDS ORDERED: DIPHTH,PERTUSS(ACELL),TET TOX 0.5 ML DISP.SYRIN. VAX IM ONE (08:15)
--- NOTE | 2019-01-13 08:18 | PDOC ---
Provider Note Provider Note T max 99.7, feels better, still very red and patchy involvement of posteriorL calf- no vesicles, cults pending- will check a1c, no prior hx of dm CRYSTAL BETANCUR MD Jan 13, 2019 08:18
[2019-01-13] MEDS: LACTOBACILLUS RHAMNOSUS GG 1 CAPSULE. PO SCH ×2 (09:21→21:55)
[2019-01-13] MEDS: SERTRALINE 25 MG TABLET. PO SCH (09:21)
[2019-01-13] MEDS: LINEZOLID 600 MG TABLET PO SCH ×2 (09:21→21:55)
--- NOTE | 2019-01-13 10:00 | NUR ---
Unsuccessful IV attempt x 2. Will have another RN attempt later.
--- NOTE | 2019-01-13 10:07 | PDOC ---
Infectious Disease Note Subjective: Subjective Pt feels better today feels like a dry patch on RLE ROS: ROS Negative otherwise. Vital Signs: Vital Signs Vital Signs Date Time Temp Pulse Resp B/P (MAP) Pulse Ox O2 Delivery O2 Flow Rate FiO2 01/13/19 07:35 Room Air 01/13/19 07:00 98.4 68 18 138/46 (76) 93 98.4 Physical Exam: PHYSICAL EXAM GENERAL: Alert, oriented x 3, pleasant female, lying in bed comfortably, in no acute distress, nontoxic appearing. HEENT: Normocephalic, atraumatic, anicteric. No thrush. Oral mucosa moist. NECK: Supple, no JVD. LUNGS: Clear bilaterally. No wheezing. HEART: S1, S2. No gallops or murmurs. ABDOMEN: Soft, nontender, nondistended. EXTREMITIES: Left lower extremity redness, tenderness, erythema going up from the calf up to the thigh medially. No lower abdominal area involved. There are redness with patches over the lateral aspect of the leg, which the patient has not had before. No other open wounds noted. DERMATOLOGIC: Warm and dry. Multiple psoriatic patches over the elbows, hands, palmar aspect of the hands and leg including plantar aspect of the left leg. NEUROLOGIC: Alert and oriented x 3, grossly nonfocal. PSYCHIATRIC: Cooperative, appropriate mood and affect. Medications: Inpatient Meds: Current Medications Medications (Trade) Dose Ordered Sig/Flores Start Time Stop Time Status Last Admin Dose Admin Acetaminophen (Tylenol) 650 mg PRN Q4HRS PRN 01/12/19 01:15 01/13/19 01:14 DC Cefazolin Sodium (Ancef) 1 gm Q8HRS 01/13/19 14:00 Cefazolin Sodium 1 gm/Dextrose 50 ml @ 100 mls/hr Q8HRS 01/12/19 12:00 01/13/19 06:01 DC 01/13/19 06:03 100 MLS/HR Diphtheria/ Tetanus/Acell Pertussis (Boostrix) 0.5 ml ONCE ONCE 01/13/19 08:15 01/13/19 08:22 DC Fentanyl Citrate (Fentanyl 2ml Vial) 50 mcg PRN Q1HR PRN 01/12/19 01:15 01/13/19 01:14 DC Influenza Virus Vaccine Quadrival (Afluria Quad (3yr Up) Syringe) 0.5 ml ONCE ONCE 01/12/19 09:00 01/12/19 09:01 DC 01/12/19 09:09 0.5 ML Lactobacillus Rhamnosus (Culturelle) 1 cap BID 01/12/19 21:00 01/13/19 09:21 1 CAP Linezolid (Zyvox) 600 mg BID 01/12/19 12:00 01/13/19 09:21 600 MG Ondansetron HCl (Zofran) 4 mg PRN Q8HRS PRN 01/12/19 01:15 01/13/19 01:14 DC Pantoprazole Sodium (Protonix) 40 mg DAILYAC 01/12/19 07:30 01/13/19 06:03 40 MG Sertraline HCl (Zoloft) 25 mg DAILY 01/12/19 09:00 01/13/19 09:21 25 MG Sodium Chloride 1,000 ml @ 1,000 mls/hr 1X ONCE 01/12/19 00:15 01/12/19 01:14 DC 01/12/19 00:44 1,000 MLS/HR Vancomycin HCl (Vanco Per Pharmacy) 1 each PRN DAILY PRN 01/12/19 01:00 01/12/19 10:53 DC 01/12/19 02:57 1 EACH Vancomycin HCl (Vancomycin Trough Level) 1 each 1X ONCE 01/13/19 13:00 01/12/19 10:53 DC Vancomycin HCl 1.5 gm/Sodium Chloride 500 ml @ 250 mls/hr Q12H 01/12/19 13:30 01/12/19 10:49 DC Vancomycin HCl 1.75 gm/Sodium Chloride 500 ml @ 250 mls/hr 1X ONCE 01/12/19 01:00 01/12/19 02:59 DC 01/12/19 01:15 250 MLS/HR Objective: Assessment: 1. Left lower extremity cellulitis.improving 2. History of psoriasis, not on disease modifying agent. 3. History of ALLERGIES TO METHOTREXATE. 4. Depression, on sertraline. Plan: Plan of Care cont cefazolin and zyvox elevate leg f/u labs and cults d/w HYACINTH Mac MD Jan 13, 2019 10:07
[2019-01-13 11:00] VITALS: BP 135/48
--- NOTE | 2019-01-13 11:38 | NUR ---
SS following for discharge planning. SS reviewed pt chart. Pt is from home with spouse and is currently on room air. SS will continue to follow for discharge planning.
[2019-01-13] MEDS: ceFAZolin SODIUM IV Push 1 GM VIAL. IVP SCH ×2 (14:46→21:56)
[2019-01-13 15:00] VITALS: BP 128/62
[2019-01-13 19:54] VITALS: BP 121/78
[2019-01-13 23:35] VITALS: BP 121/55
[2019-01-14 03:35] VITALS: BP 116/44
[2019-01-14] MEDS: ceFAZolin SODIUM IV Push 1 GM VIAL. IVP SCH ×2 (06:19→13:24)
[2019-01-14 07:00] VITALS: BP 143/44
[2019-01-14 08:13] LABS: HEMOGLOBIN A1C 6.1 % (4.8-5.6)
--- NOTE | 2019-01-14 08:14 | PDOC ---
Infectious Disease Note Subjective: Subjective Pt has no complaints ambulating in room wants to go home ROS: ROS Negative otherwise. Vital Signs: Vital Signs Vital Signs Date Time Temp Pulse Resp B/P (MAP) Pulse Ox O2 Delivery O2 Flow Rate FiO2 01/14/19 03:35 98.6 63 16 116/44 (68) 96 Room Air 98.6 Physical Exam: PHYSICAL EXAM GENERAL: Alert, oriented x 3, pleasant female, lying in bed comfortably, in no acute distress, nontoxic appearing. HEENT: Normocephalic, atraumatic, anicteric. No thrush. Oral mucosa moist. NECK: Supple, no JVD. LUNGS: Clear bilaterally. No wheezing. HEART: S1, S2. No gallops or murmurs. ABDOMEN: Soft, nontender, nondistended. EXTREMITIES: Left lower extremity redness, tenderness, erythema going up from the calf up to the thigh medially. No lower abdominal area involved. There are redness with patches over the lateral aspect of the leg, which the patient has not had before. No other open wounds noted. DERMATOLOGIC: Warm and dry. Multiple psoriatic patches over the elbows, hands, palmar aspect of the hands and leg including plantar aspect of the left leg. NEUROLOGIC: Alert and oriented x 3, grossly nonfocal. PSYCHIATRIC: Cooperative, appropriate mood and affect. Medications: Inpatient Meds: Current Medications Medications (Trade) Dose Ordered Sig/Flores Start Time Stop Time Status Last Admin Dose Admin Acetaminophen (Tylenol) 650 mg PRN Q4HRS PRN 01/12/19 01:15 01/13/19 01:14 DC Cefazolin Sodium (Ancef) 1 gm Q8HRS 01/13/19 14:00 01/14/19 06:19 1 GM Cefazolin Sodium 1 gm/Dextrose 50 ml @ 100 mls/hr Q8HRS 01/12/19 12:00 01/13/19 06:01 DC 01/13/19 06:03 100 MLS/HR Diphtheria/ Tetanus/Acell Pertussis (Boostrix) 0.5 ml ONCE ONCE 01/13/19 08:15 01/13/19 08:22 DC 01/13/19 10:48 0.5 ML Fentanyl Citrate (Fentanyl 2ml Vial) 50 mcg PRN Q1HR PRN 01/12/19 01:15 01/13/19 01:14 DC Influenza Virus Vaccine Quadrival (Afluria Quad 2018-20 (3yr Up) Syringe) 0.5 ml ONCE ONCE 01/12/19 09:00 01/12/19 09:01 DC 01/12/19 09:09 0.5 ML Lactobacillus Rhamnosus (Culturelle) 1 cap BID 01/12/19 21:00 01/13/19 21:55 1 CAP Linezolid (Zyvox) 600 mg BID 01/12/19 12:00 01/13/19 21:55 600 MG Ondansetron HCl (Zofran) 4 mg PRN Q8HRS PRN 01/12/19 01:15 01/13/19 01:14 DC Pantoprazole Sodium (Protonix) 40 mg DAILYAC 01/12/19 07:30 01/13/19 06:03 40 MG Sertraline HCl (Zoloft) 25 mg DAILY 01/12/19 09:00 01/13/19 09:21 25 MG Sodium Chloride 1,000 ml @ 1,000 mls/hr 1X ONCE 01/12/19 00:15 01/12/19 01:14 DC 01/12/19 00:44 1,000 MLS/HR Vancomycin HCl (Vanco Per Pharmacy) 1 each PRN DAILY PRN 01/12/19 01:00 01/12/19 10:53 DC 01/12/19 02:57 1 EACH Vancomycin HCl (Vancomycin Trough Level) 1 each 1X ONCE 01/13/19 13:00 01/12/19 10:53 DC Vancomycin HCl 1.5 gm/Sodium Chloride 500 ml @ 250 mls/hr Q12H 01/12/19 13:30 01/12/19 10:49 DC Vancomycin HCl 1.75 gm/Sodium Chloride 500 ml @ 250 mls/hr 1X ONCE 01/12/19 01:00 01/12/19 02:59 DC 01/12/19 01:15 250 MLS/HR Labs: Lab Laboratory Tests Test 01/13/19 09:20 Hemoglobin A1c 6.1 % (4.8-5.6) Objective: Assessment: 1. Left lower extremity cellulitis.improving 2. History of psoriasis, not on disease modifying agent. 3. History of ALLERGIES TO METHOTREXATE. 4. Depression, on sertraline. Plan: Plan of Care keflex for 10 days ok to dc elevate leg f/u ID clinic if needed d/w HYACINTH Mac MD Jan 14, 2019 08:14
--- NOTE | 2019-01-14 08:20 | PDOC ---
Provider Note Provider Note no temp in 36 hrs, a1c pending- L leg a little less red posteriorly; encouraged to keep walking re dvt risk- cont same, home on zyvox only? CRYSTAL BETANCUR MD Jan 14, 2019 08:20
[2019-01-14] MEDS: PANTOPRAZOLE 40 MG TABLET.DR. PO SCH (08:30)
[2019-01-14] MEDS: LINEZOLID 600 MG TABLET PO SCH (08:30)
[2019-01-14] MEDS: SERTRALINE 25 MG TABLET. PO SCH (08:30)
[2019-01-14] MEDS: LACTOBACILLUS RHAMNOSUS GG 1 CAPSULE. PO SCH (08:30)
[2019-01-14 11:00] VITALS: BP 129/32
[2019-01-14] MEDS ORDERED: CEPH-264 PO ×2 (12:08→12:12)
--- NOTE | 2019-01-14 12:37 | DS ---
DATE OF DISCHARGE: 01/14/2019 HOSPITAL SUMMARY: A 63-year-old white female with no significant medical history, came in with cellulitis of the left lower leg, mainly around the circumferential left calf. This may have stemmed from some skin lesions on her left foot from psoriasis. She had good pedal pulses and no sign of joint involvement. Blood cultures had no growth. Wound culture was not obtained and the chemistry profile was normal. Blood sugar was 116. Hemoglobin A1c was 6.1 consistent with a new diagnosis of prediabetes. She was treated with IV Zyvox and Ancef and then after being afebrile for almost 48 hours, Dr. Salinas felt that she could be transitioned to oral Keflex and be discharged and followed as an outpatient. FINAL DIAGNOSES: 1. Left lower extremity cellulitis. 2. Prediabetes, new diagnosis. OPERATIONS, PROCEDURES, COMPLICATIONS: None. CONSULTATIONS: Dr. Salinas, Infectious Disease. DISPOSITION: One week of Keflex 500 mg 3 times a day. Office followup in 1 week. We will follow her hemoglobin A1c about every 4 months. Proper diabetic diet restrictions given. Rest of home meds the same. ACTIVITY: As tolerated. PROGNOSIS: Good. CRYSTAL BETANCUR MD DR: DIANA/marco a JOB#: [id number] / [id number]
--- NOTE | 2019-01-14 14:10 | NUR ---
Pt. discharged to home with Rx, verbalized understanding of discharge instructions.
== END 2019-01-14 14:11 | disposition home or self-care (01) | DRG 603 ==
LOC: ER 22:49 → 4 NORTH 01-12 01:37
PROVIDERS: ADMIT Family Medicine; ATTEND Family Medicine
DX: L03.116 Cellulitis of left lower limb (principal); K21.9 Gastro-esophageal reflux disease without esophagitis; F41.9 Anxiety disorder, unspecified; F32.9 Major depressive disorder, single episode, unspecified; L40.9 Psoriasis, unspecified; Z88.8 Allergy status to other drugs, medicaments and biological substances; Z79.899 Other long term (current) drug therapy; R73.03 Prediabetes
CPT/HCPCS: 36415; 80053; 83036; 83605; 85025; 87040; 90471; 90686; 90715; 93971; 96365; 96375; J0690; J2405; J3370; J7030; J7040; 99285-25; G0378

== ENCOUNTER → 2019-01-31 | Outpatient (CLI) | payer MEDICARE, BC ==
[2019-01-14 11:00] VITALS: BP 129/32
[~2019-01-31] MED LIST changes: +CEPH-264 PO
--- NOTE | 2019-01-31 12:59 | KCIC ---
EXAM: Dual energy x-ray absorptiometry (DEXA). HISTORY: Postmenopausal female presents for osteoporosis screening. COMPARISON: None. TECHNIQUE: Dual energy x-ray absorptiometry of the lumbar spine and left hip was performed. Calculation of bone mineral density based on standard deviations above or below the expected young adult normal value (T-score) was completed. FINDINGS: The average bone mineral density in the 1st through 4th lumbar vertebrae is 0.949 g/cmxcm, corresponding with a T-score of -0.9. The average total bone mineral density in the left hip is 0.879 g/cmxcm, corresponding with a T-score of -0.5. IMPRESSION: Normal bone mineral density. Note: Definitions established by the World Health Organization: 1. Normal: T-score is -1.0 or above. 2. Osteopenia: T-score is between -1.0 and -2.5 . 3. Osteoporosis: T-score is -2.5 or below. Electronically signed by: Aspen Chiang MD (01/31/2019 12:57 PM) [facility]
== END | disposition home or self-care (01) ==
LOC: KCIC DEXA 11:22
PROVIDERS: ATTEND Family Medicine
DX: Z13.820 Encounter for screening for osteoporosis (principal); Z78.0 Asymptomatic menopausal state
CPT/HCPCS: 77080

== ENCOUNTER 2019-04-11 17:17 | Inpatient (IN) | payer MEDICARE, BC ==
[~2019-04-11] VITALS: Ht 149.9 cm; Wt 94.1 kg
[2019-04-11] MEDS ORDERED: IV NORMAL SALINE 1000ML BAG 1,000 ML IV SCH (18:04)
--- NOTE | 2019-04-11 18:11 | PHYS DOC ---
Past Medical History Past Medical History: Anxiety, GERD Past Surgical History: No Surgical History Additional Past Surgical Histo: BREAST REDUCTION/IMPLANTS Alcohol Use: None Drug Use: None Adult General Chief Complaint Chief Complaint: CELLULITIS HPI HPI Patient is a 64 year old male with history of diet-controlled diabetes mellitus, GERD, psoriasis, anxiety who presents with complaint of left leg pain. Patient states she has psoriasis with skin lesion and since this morning had left leg pain and erythema and edema. Patient denies fever and chills, focal ne uro deficit. Patient complaining of chronic nausea and vomiting without new changes today. Review of Systems Review of Systems Constitutional: Denies fever or chills [] Eyes: Denies change in visual acuity, redness, or eye pain [] HENT: Denies nasal congestion or sore throat [] Respiratory: Denies cough or shortness of breath [] Cardiovascular: No additional information not addressed in HPI [] GI: Denies abdominal pain, bloody stools or diarrhea, reports chronic nausea and vomiting [] : Denies dysuria or hematuria [] Musculoskeletal: Denies back pain, reports joint pain [] Integument: Reports skin rash Neurologic: Denies headache, focal weakness or sensory changes [] Endocrine: Denies polyuria or polydipsia [] All other systems were reviewed and found to be within normal limits, except as documented in this note. Current Medications Current Medications Current Medications Medications (Trade) Dose Ordered Sig/Flores Start Time Stop Time Status Last Admin Dose Admin Sodium Chloride 1,000 ml @ 1,000 mls/hr Q1H 04/11/19 18:04 04/11/19 19:03 DC 04/11/19 18:49 1,000 MLS/HR Allergies Allergies Allergies Coded Allergies Type Severity Reaction Last Updated Verified methotrexate Allergy Severe Nausea and Vomiting 01/12/19 Yes Physical Exam Physical Exam Constitutional: Well developed, well nourished, mild distress, non-toxic appearance, temperature of 103. [] HENT: Normocephalic, atraumatic. Eyes: PERRLA, EOMI, conjunctiva normal, no discharge. [] Neck: Normal range of motion, no tenderness, supple, no stridor. [] Cardiovascular:Heart rate regular rhythm, no murmur [] Lungs & Thorax: Bilateral breath sounds clear to auscultation [] Abdomen: Bowel sounds normal, soft, no tenderness, no masses, no pulsatile masses. [] Skin: Warm, dry, eczematous lesion of psoriasis in bilateral lower extremity, left lower extremity with erythema and tenderness. Back: No tenderness, no CVA tenderness. [] Extremities: No tenderness, no cyanosis, no clubbing, ROM intact, no edema. [] Neurologic: Alert and oriented X 3, no focal deficits noted. [] Psychologic: Affect normal, judgement normal, mood normal. [] Current Patient Data Vital Signs Vital Signs Date Time Temp Pulse Resp B/P (MAP) Pulse Ox O2 Delivery O2 Flow Rate FiO2 04/11/19 17:49 103.2 99 19 116/54 (74) 97 Room Air 103.2 Lab Values Laboratory Tests Test 04/11/19 18:05 Influenza Type A Antigen Negative (NEGATIVE) Influenza Type B Antigen Negative (NEGATIVE) EKG EKG [] Radiology/Procedures Radiology/Procedures [facility] [address] [place] [address] IMAGING REPORT Signed PATIENT: MAU AYALA EACCOUNT: [id number] : 1955 LOCATION: [address] [place] [address] AGE: 64 SEX: F EXAM STATUS: ADM IN ORD. PHYSICIAN: BRITTANIE PLUMMER MD REASON: CELLULITIS PROCEDURE: TIBIA FIBULA LEFT Exam: Left tib-fib 2 views INDICATION: Cellulitis TECHNIQUE: Frontal and lateral views of the left tibia and fibula. Comparisons: None FINDINGS: The distal portions of the medial lateral malleolus or not evaluated on this study secondary to positioning. Bone mineralization is normal. No acute or healed fractures. There is mild soft tissue reticulation noted within the subcutaneous tissues of the lower leg. IMPRESSION: Mild soft tissue reticulation the subcutaneous fat of the lower leg, may relate to known history of cellulitis. No radiopaque foreign body identified. Electronically signed by: John Fairchild MD (04/11/2019 9:32 PM) [facility] DICTATED and SIGNED BY: JOHN FAIRCHILD MD DATE: 04/11/192131 Course & Med Decision Making Course & Med Decision Making Pertinent Labs and Imaging studies reviewed. (See chart for details) Evaluation of patient in ER showed 64-year-old female patient with history of psoriasis and previous cellulitis presented to ER with left lower extremity erythema and edema without sign of cellulitis. Patient had temperature of 103 at arrival to ER with negative flu. Patient had leukocytosis and elevation of lactic acid and sepsis protocol was started with IV fluid and antibiotic. Patient did not have hypotension. She didn't want to have pain medication in ER. Patient requiring admission for further evaluation and treatment. Discussed with Dr. Whalen who is in agreement with admission. Discussed findings and plan with patient and family, who acknowledge understanding and agreement. Dragon Disclaimer Dragon Disclaimer This electronic medical record was generated, in whole or in part, using a voice recognition dictation system. Departure Departure Impression: Primary Impression: Sepsis Additional Impressions: Lower extremity cellulitis Fever Urinary tract infection Disposition: ADMITTED INPATIENT (at 1923) Admitting Physician: Alina Whalen (accepted admission at 1922) Condition: IMPROVED Referrals: CRYSTAL BETANCUR MD (PCP) Date and Time of Reassessment Date: Apr 11, 2019 Time: 19:30 Fluid Challenge Is the fluid challenge complet: Yes IBW Target Volume Used: Yes BMI > 30: Yes Vital Signs Vital Signs: Vital Signs Date Time Temp Pulse Resp B/P (MAP) Pulse Ox O2 Delivery O2 Flow Rate FiO2 04/11/19 17:49 103.2 99 19 116/54 (74) 97 Room Air 103.2 Temperature Source: Oral Respirations Respiratory Pattern: Normal Cardiovascular Pulse Rhythm: Regular Heart: Nml S1, S2, no murmurs Lung Sounds Breath Sounds: Clear Capillary Refil Capillary Refill: Rt Hand < 3 seconds Peripheral Pulse Pulse Location: Radial Pulse Strength: Normal (2+) Pulse Assessment Method: NIBP Integumentary Skin: Warm Skin Moisture: Dry Critical Care Time Critical care time was 60 minutes exclusive of procedures. Problem Qualifiers Primary Impression: Sepsis Sepsis type: sepsis due to unspecified organism Sepsis acute organ dysfunction status: unspecified Qualified Codes: A41.9 - Sepsis, unspecified organism Additional Impressions: Lower extremity cellulitis Laterality: unspecified laterality Qualified Codes: L03.119 - Cellulitis of unspecified part of limb Fever Fever type: unspecified Qualified Codes: R50.9 - Fever, unspecified Urinary tract infection Urinary tract infection type: site unspecified Hematuria presence: without hematuria Qualified Codes: N39.0 - Urinary tract infection, site not specified BRITTANIE PLUMMER MD Apr 11, 2019 18:10
[2019-04-11] MEDS ORDERED: ACETAMINOPHEN 500 MG TABLET PO ONE (18:15)
[2019-04-11] MEDS ORDERED: ceFAZolin SODIUM IV Push 1 GM VIAL. IVP ONE (18:15)
[2019-04-11 18:44] LABS: INFLUENZA A PATIENT NEGATIVE (NEGATIVE); INFLUENZA B PATIENT NEGATIVE (NEGATIVE)
[2019-04-11 19:07] LABS: BASO # 0.1 x10^3/uL (0.0-0.2); BASO % 0 % (0-3); EOS % 0 % (0-3); HEMATOCRIT 37.2 % (36.0-47.0); HEMOGLOBIN 12.1 g/dL (12.0-15.5); LYMPH # 0.8 x10^3/uL (1.0-4.8); LYMPH % 6 % (24-48); MEAN CORPUSCULAR HEMOGLOBIN 26 pg (25-35); MEAN CORPUSCULAR HGB CONC 33 g/dL (31-37); MEAN CORPUSCULAR VOLUME 81 fL (79-100); MONO # 0.6 x10^3/uL (0.0-1.1); MONO % 5 % (0-9); NEUT # 12.2 x10^3/uL (1.8-7.7); NEUT % 89 % (31-73); PLATELET COUNT 319 x10^3/uL (140-400); RED BLOOD COUNT 4.62 x10^6/uL (3.50-5.40); RED CELL DISTRIBUTION WIDTH 15.3 % (11.5-14.5); WHITE BLOOD COUNT 13.7 x10^3/uL (4.0-11.0)
[2019-04-11 19:15] LABS: CALCIUM 9.2 mg/dL (8.5-10.1); CREATININE 0.9 mg/dL (0.6-1.0); GFR 62.8; POTASSIUM 4.1 mmol/L (3.5-5.1); PROTHROMBIN TIME PATIENT 13.7 SEC (11.7-14.0)
[2019-04-11 19:21] LABS: ALBUMIN 3.9 g/dL (3.4-5.0); ALBUMIN/GLOBULIN RATIO 1.2 (1.0-1.7); TOTAL BILIRUBIN 0.6 mg/dL (0.2-1.0); TOTAL PROTEIN 7.2 g/dL (6.4-8.2)
[2019-04-11 19:27] LABS: BILIRUBIN,URINE NEGATIVE (NEG); CLARITY,URINE CLOUDY; COLOR,URINE YELLOW; NITRITE,URINE NEGATIVE (NEG); PH,URINE 8.5; PROTEIN,URINE 30 mg/dL (NEG-TRACE); UROBILINOGEN,URINE 0.2 mg/dL (0.2 mg/dL)
[2019-04-11 19:43] LABS: BACTERIA,URINE FEW /HPF (0-FEW); RBC,URINE 0 /HPF (0-2); SQUAMOUS EPITHELIAL CELL,UR FEW /LPF
[2019-04-11] MEDS ORDERED: IV NORMAL SALINE 1000ML BAG 1,000 ML IV ONE (19:45)
[2019-04-11] MEDS ORDERED: ACETAMINOPHEN 325 MG TABLET. PO PRN (19:45)
[2019-04-11 21:09] VITALS: BP 113/48
--- NOTE | 2019-04-11 21:35 | RAD ---
Exam: Left tib-fib 2 views INDICATION: Cellulitis TECHNIQUE: Frontal and lateral views of the left tibia and fibula. Comparisons: None FINDINGS: The distal portions of the medial lateral malleolus or not evaluated on this study secondary to positioning. Bone mineralization is normal. No acute or healed fractures. There is mild soft tissue reticulation noted within the subcutaneous tissues of the lower leg. IMPRESSION: Mild soft tissue reticulation the subcutaneous fat of the lower leg, may relate to known history of cellulitis. No radiopaque foreign body identified. Electronically signed by: John Armstrong MD (04/11/2019 9:32 PM) [facility]
[2019-04-11] MEDS: IV NORMAL SALINE 1000ML BAG 1,000 ML IV SCH (22:08)
[2019-04-11] MEDS ORDERED: METF500T16 PO (22:14)
[2019-04-11 23:19] VITALS: BP 99/32
--- NOTE | 2019-04-11 23:47 | NUR ---
Pt.arrived from ED via bed around 2034 w/ L lower leg cellulitis. @ BS. She is A/O x4 and will make needs known.
[2019-04-12 03:52] VITALS: BP 108/42
[2019-04-12] MEDS: IV NORMAL SALINE 1000ML BAG 1,000 ML IV SCH ×2 (05:14→11:49)
[2019-04-12 07:05] VITALS: BP 110/44
[2019-04-12] MEDS: ceFAZolin SODIUM IV Push 1 GM VIAL. IVP SCH ×3 (10:35→21:03)
[2019-04-12 11:05] VITALS: BP 106/36
--- NOTE | 2019-04-12 11:11 | HP ---
ADMIT DATE: 04/11/2019 CHIEF COMPLAINT AND HISTORY OF PRESENT ILLNESS: This 64-year-old white female, patient of Dr. Ventura who was admitted through the Emergency Room on the day of admission with cellulitis of the left lower extremity. She states she went to bed the night prior without a problem, woke up in the middle of the night with extreme pain, fevers, chills, sweats and had cellulitis present, which she has had before and been admitted for the same. She has a history of psoriasis. She is on IV antibiotics. PAST MEDICAL HISTORY: Remarkable for anxiety, GERD, history of a prior cellulitis of the left leg and psoriasis. PAST SURGICAL HISTORY: Breast reduction and implants. MEDICATIONS: Brought with the patient, listed on the computer and have been addressed. ALLERGIES: SHE IS ALLERGIC TO METHOTREXATE. SOCIAL HISTORY: Noncontributory. FAMILY HISTORY: Noncontributory. REVIEW OF SYSTEMS: Remarkable for pain in the left leg, fevers, chills, and sweats. She does have some white cells in her urine, but has absolutely no dysuria, hematuria, urgency, frequency, nocturia, etc. PHYSICAL EXAMINATION: GENERAL: She is well-developed, well-nourished white female who states that she does feel better currently than last night. VITAL SIGNS: Stable. T-max is 103. HEAD, EYES, EARS, NOSE AND THROAT: Unremarkable. NECK: Supple without adenopathy or thyromegaly. CHEST: Clear to auscultation and percussion. HEART: Regular rate and rhythm without S3, S4 or murmur. ABDOMEN: Soft, nontender, without hepatosplenomegaly or masses. EXTREMITIES: Reveal left lower leg cellulitis from just above the ankle or just below the knee. NEUROLOGIC: She is intact. DIAGNOSTIC STUDIES AND LABORATORY DATA: Tib-fib pictures were negative for any kind of fractures. White count is 13,700 with a left shift. Initial lactic acid was 2.6, is down to 1.1. Glucose was 128 on admission. INR is within normal limits. Urine shows 11-20 white blood cells with small leukocyte esterase and few bacteria. Influenza testing is negative. IMPRESSION: 1. Cellulitis of left lower extremity, rapid onset suggestive of probable strep. 2. Other problems listed above. PLAN: We will continue cefazolin at this point in time and ask ID for opinion. Blood culture should have been drawn with the fever and we will await those in addition. SATHYA AVITIA MD DR: SEBASTIAN/marco a JOB#: [id number] / [id number] CRYSTAL Murphy MD
--- NOTE | 2019-04-12 12:18 | PDOC ---
Infectious Disease Note Vital Sign Vital Signs Vital Signs Date Time Temp Pulse Resp B/P (MAP) Pulse Ox O2 Delivery O2 Flow Rate FiO2 04/12/19 08:00 Room Air 04/12/19 07:05 99.6 72 18 110/44 (66) 96 99.6 Labs Lab Laboratory Tests Test 04/11/19 18:05 04/11/19 18:55 04/11/19 19:00 04/11/19 22:40 Influenza Type A Antigen Negative (NEGATIVE) Influenza Type B Antigen Negative (NEGATIVE) White Blood Count 13.7 x10^3/uL (4.0-11.0) Red Blood Count 4.62 x10^6/uL (3.50-5.40) Hemoglobin 12.1 g/dL (12.0-15.5) Hematocrit 37.2 % (36.0-47.0) Mean Corpuscular Volume 81 fL (79-100) Mean Corpuscular Hemoglobin 26 pg (25-35) Mean Corpuscular Hemoglobin Concent 33 g/dL (31-37) Red Cell Distribution Width 15.3 % (11.5-14.5) Platelet Count 319 x10^3/uL (140-400) Neutrophils (%) (Auto) 89 % (31-73) Lymphocytes (%) (Auto) 6 % (24-48) Monocytes (%) (Auto) 5 % (0-9) Eosinophils (%) (Auto) 0 % (0-3) Basophils (%) (Auto) 0 % (0-3) Neutrophils # (Auto) 12.2 x10^3/uL (1.8-7.7) Lymphocytes # (Auto) 0.8 x10^3/uL (1.0-4.8) Monocytes # (Auto) 0.6 x10^3/uL (0.0-1.1) Eosinophils # (Auto) 0.0 x10^3/uL (0.0-0.7) Basophils # (Auto) 0.1 x10^3/uL (0.0-0.2) Prothrombin Time 13.7 SEC (11.7-14.0) Prothromb Time International Ratio 1.1 (0.8-1.1) Activated Partial Thromboplast Time 29 SEC (24-38) Sodium Level 140 mmol/L (136-145) Potassium Level 4.1 mmol/L (3.5-5.1) Chloride Level 101 mmol/L (98-107) Carbon Dioxide Level 27 mmol/L (21-32) Anion Gap 12 (6-14) Blood Urea Nitrogen 12 mg/dL (7-20) Creatinine 0.9 mg/dL (0.6-1.0) Estimated GFR (Cockcroft-Gault) 62.8 BUN/Creatinine Ratio 13 (6-20) Glucose Level 128 mg/dL (70-99) Lactic Acid Level 2.6 mmol/L (0.4-2.0) 1.1 mmol/L (0.4-2.0) Calcium Level 9.2 mg/dL (8.5-10.1) Total Bilirubin 0.6 mg/dL (0.2-1.0) Aspartate Amino Transf (AST/SGOT) 25 U/L (15-37) Alanine Aminotransferase (ALT/SGPT) 61 U/L (14-59) Alkaline Phosphatase 83 U/L (46-116) Troponin I Quantitative < 0.017 ng/mL (0.000-0.055) DQ-Dwg-T-Type Natriuretic Peptide 214 pg/mL (0-124) Total Protein 7.2 g/dL (6.4-8.2) Albumin 3.9 g/dL (3.4-5.0) Albumin/Globulin Ratio 1.2 (1.0-1.7) Lipase 99 U/L (73-393) Urine Collection Type Void Urine Color Yellow Urine Clarity Cloudy Urine pH 8.5 Urine Specific Duff 1.025 Urine Protein 30 mg/dL (NEG-TRACE) Urine Glucose (UA) Negative mg/dL (NEG) Urine Ketones (Stick) Negative mg/dL (NEG) Urine Blood Negative (NEG) Urine Nitrite Negative (NEG) Urine Bilirubin Negative (NEG) Urine Urobilinogen Dipstick 0.2 mg/dL (0.2 mg/dL) Urine Leukocyte Esterase Small (NEG) Urine RBC 0 /HPF (0-2) Urine WBC 11-20 /HPF (0-4) Urine Squamous Epithelial Cells Few /LPF Urine Bacteria Few /HPF (0-FEW) Urine Mucus Slight /LPF Objective Assessment Cellulitis left lower extremity Immunosuppression Fever Leukocytosis Lactic acidosis Psoriasis, on Humira Exposure dog/cat Plan Plan of Care Continue Cefazolin f/u cultures D/w at bedside Thank you [id number] Patient seen and examined. Chart reviewed in detail. Case discussed with OSTEOPATHIC NEUROLOGIST. Agree with above plan. MARIANA PAYNE APRN Apr 12, 2019 12:18 MISTI CATHERINE MD Apr 12, 2019 21:39
--- NOTE | 2019-04-12 12:45 | CONS ---
DATE OF CONSULTATION: 04/12/2019 Diego Minor, nurse practitioner dictating for Dr. Misti Catherine of Infectious Disease. REFERRING PHYSICIAN: Dr. Landon REASON FOR CONSULTATION: Cellulitis. HISTORY OF PRESENT ILLNESS: This patient is a 64-year-old female who woke up yesterday morning with left leg pain. Over the course of the day she noticed redness and swelling developed associated with fever, nausea, and vomiting. She was found to have a fever of 103.2, leukocytosis and elevated lactic acid of 2.6 on arrival to the ER. An x-ray of the left leg showed mild soft tissue reticulation noted within the subcutaneous tissues of the lower leg. Blood cultures were ordered. She is currently on cefazolin. The patient states her leg is looking and feeling better. The redness and swelling have improved and her fever has settled down. She has a history of cellulitis in the same leg in December of last year, which resolved with antibiotics. She has a history of psoriasis and has been on Humira treatment for the past couple of months. She has a dog and two cats at home. PAST MEDICAL HISTORY: Psoriasis, currently on Humira. Anxiety. GERD. PAST SURGICAL HISTORY: Breast reduction with implants. FAMILY HISTORY: Noncontributory. SOCIAL HISTORY: The patient is and lives at home. She has a dog and two cats. Former smoker. Retired from [employer]. ALLERGIES: METHOTREXATE. MEDICATIONS: Cefazolin, acetaminophen. REVIEW OF SYSTEMS: Per HPI, otherwise all other review of systems are negative. PHYSICAL EXAMINATION: VITAL SIGNS: Temperature 99.6, T-max 103.2, blood pressure 110/44, heart rate 72, respiratory rate 18, pulse oximetry 96% on room air. GENERAL: The patient is sitting on side of the bed, alert and eating. HEENT: Pupils equally round. Oropharynx pink and moist. No thrush. NECK: Supple. LUNGS: Clear. HEART: S1, S2. ABDOMEN: Obese, soft, nontender with bowel sounds present. EXTREMITIES: No gross edema or cyanosis. Mild erythema posterior aspect of the left calf with warmth. Multiple psoriatic lesions. SKIN: Warm to touch. NEUROLOGIC: Alert and answering questions appropriately. LABORATORY DATA: On admission, WBC 13.7, hemoglobin 12.1, platelets 319,000. Electrolytes are unremarkable. Creatinine 0.9, BUN 12. Lactic acid 1.1 from 2.6, total bilirubin 0.6, AST 25, ALT 61. Troponin less than 0.017, albumin 3.9, lipase 99. Urinalysis positive for wbc's, leukocyte esterase, few bacteria. Urine and blood cultures pending. Influenza screen negative. Tibia/fibula x-ray per HPI. IMPRESSION: 1. Cellulitis of the left lower extremity. 2. Immunosuppression. 3. Fever. 4. Leukocytosis. 5. Lactic acidosis. 6. Psoriasis, on Humira. PLAN: The patient's cellulitis is improving. Continue to cefazolin. We will follow up on culture results. Supportive care. Discussed with at bedside. Thank you, Dr. Santos for asking us to participate in this patient's care. Should you have further questions or concerns, please call. MISTI CATHERINE MD DR: RANDELL/marco a JOB#: [id number] / [id number] DAVID
[2019-04-12 15:40] VITALS: BP 103/34
[2019-04-12 19:37] VITALS: BP 99/45
[2019-04-12] MEDS: LACTOBACILLUS RHAMNOSUS GG 1 CAPSULE. PO SCH (21:03)
[2019-04-12 23:32] VITALS: BP 102/41
[2019-04-13 03:32] VITALS: BP 115/51
[2019-04-13] MEDS: ceFAZolin SODIUM IV Push 1 GM VIAL. IVP SCH (05:23)
[2019-04-13 07:00] VITALS: BP 118/56
[2019-04-13] MEDS ORDERED: PANTOPRAZOLE 40 MG TABLET.DR. PO SCH (07:30)
[2019-04-13] MEDS ORDERED: metFORMIN 500 MG TABLET PO SCH (08:00)
[2019-04-13] MEDS: LACTOBACILLUS RHAMNOSUS GG 1 CAPSULE. PO SCH (08:35)
[2019-04-13] MEDS ORDERED: SERTRALINE 25 MG TABLET. PO SCH (09:00)
--- NOTE | 2019-04-13 09:35 | PDOC ---
Infectious Disease Note Subjective Subjective Doing well, says leg looking better, No further fevers last 24 hours Denies pain/N/V/SOA ROS ROS per HPI Vital Sign Vital Signs Vital Signs Date Time Temp Pulse Resp B/P (MAP) Pulse Ox O2 Delivery O2 Flow Rate FiO2 04/13/19 07:00 98.3 64 17 118/56 (76) 96 Room Air 98.3 Physical Exam PHYSICAL EXAM GENERAL: Propped up in bed, alert in NAD HEENT: Pupils equally round. Oropharynx pink and moist. No thrush. NECK: Supple. LUNGS: Clear. HEART: S1, S2. ABDOMEN: Obese, soft, nontender with bowel sounds present. EXTREMITIES: No gross edema or cyanosis. Mild erythema posterior aspect of the left calf with warmth -improved. Multiple psoriatic lesions. SKIN: Warm to touch. NEUROLOGIC: Alert and answering questions appropriately. Labs Micro Microbiology 04/11/19 Blood Culture - Preliminary, Resulted NO GROWTH AFTER 1 DAY Objective Assessment Cellulitis left lower extremity - improving Immunosuppression Fever better Leukocytosis Lactic acidosis Psoriasis, on Humira Exposure dog/cat Plan Plan of Care Repeat CBC Continue cefazolin for now - wean to po keflex soon Patient seen and examined. Chart reviewed in detail. Case discussed with PATIENT SERVICES COORDINATOR. Agree with above plan. MARIANA PAYNE APRN Apr 13, 2019 09:35 MISTI CATHERINE MD Apr 13, 2019 20:18
[2019-04-13] MEDS ORDERED: CEPH-264 PO (10:21)
[2019-04-13 10:54] VITALS: BP 134/53
--- NOTE | 2019-04-13 11:36 | DS ---
DATE OF DISCHARGE: 04/13/2019 PRIMARY DIAGNOSIS: Cellulitis, left lower extremity. ADDITIONAL DIAGNOSES: Psoriasis, immunosuppression with Humira therapy for the psoriasis, anxiety, gastroesophageal reflux disease. CHIEF COMPLAINT AND HISTORY OF PRESENT ILLNESS: This 64-year-old white female was admitted through the emergency room with sudden onset of cellulitis with fever, pain, chills, waking up in the middle of the night on the day of admission with the same but going to bed and feeling fine. SUMMARY OF STAY: The patient was admitted. Cellulitis was treated with intravenous Kefzol. She improved dramatically over 36 hours or so to 48-hour period. She was in the hospital with reddening lessening significantly, pain was gone, and temperature curve starting out at 103.2. She was essentially afebrile for the last 24 hours. Infectious Disease felt it was appropriate to switch her to oral Keflex and let her go home and this was accomplished. DISPOSITION: The patient is discharged to home. DIET: Regular. ACTIVITY: As tolerated. FOLLOWUP: Office of Dr. Ventura this coming week. DISCHARGE MEDICATIONS: Listed on the medication reconciliation and have been addressed; under her regular home medications plus Keflex 500 q.i.d. for the next 10 days. SATHYA AVITIA MD DR: SEBASTIAN/marco a JOB#: [id number] / [id number] CRYSTAL Murphy MD
--- NOTE | 2019-04-13 13:33 | NUR ---
Discharge Note: MAU AYALA [address] Discharge instructions and discharge home medications reviewed with patient and a copy given. All questions have been answered and understanding verbalized. The following instructions and handouts were given: Take Keflex for 10 days as directed. Watch out for fever, increased redness, swelling of legs, call physician. Follow up with PCP this week. Discontinued lines and drains: peripheral IV intact, patient tolerated removal, no complications noted. Patient discharged to home with self-care via wheelchair accompanied by the patient's spouse at 1200.
== END 2019-04-13 12:00 | disposition home or self-care (01) | DRG 872 ==
LOC: ER 17:17 → 6 SOUTH 18:08
PROVIDERS: ADMIT Family Medicine; ATTEND Family Medicine
DX: A41.9 Sepsis, unspecified organism (principal); L03.116 Cellulitis of left lower limb; N39.0 Urinary tract infection, site not specified; Z68.41 Body mass index [BMI] 40.0-44.9, adult; E11.9 Type 2 diabetes mellitus without complications; L40.9 Psoriasis, unspecified; Z87.891 Personal history of nicotine dependence; F41.9 Anxiety disorder, unspecified; K21.9 Gastro-esophageal reflux disease without esophagitis; Z88.8 Allergy status to other drugs, medicaments and biological substances; E66.9 Obesity, unspecified
CPT/HCPCS: 36415; 73590; 80053; 81001; 83605; 83690; 83880; 84484; 85025; 85610; 85730; 87040; 87086; 87804; J0690; J0696; J7030; G0378

== ENCOUNTER 2019-05-03 12:20 | Emergency (ER) | payer MEDICARE, BC ==
[~2019-05-03] VITALS: Ht 149.9 cm; Wt 91.0 kg
[~2019-05-03 12:20] MED LIST changes: +METF500T16 PO
--- NOTE | 2019-05-03 13:08 | PHYS DOC ---
Past Medical History Past Medical History: Anxiety, Diabetes-Type II, GERD, Other Additional Past Medical Histor: Psoriasis Past Surgical History: No Surgical History Additional Past Surgical Histo: BREAST REDUCTION/IMPLANTS Smoking Status: Current Every Day Smoker Additional Information: PT USES VAPE PEN. Alcohol Use: None Drug Use: None Adult General Chief Complaint Chief Complaint: SKIN RASH/ABSCESS [facility] Patient is a 64 year old female who presents with L lower extremity redness and pain that has been ongoing for 2 days. The patient also is having posterior knee tenderness. She states that she has an associated symptom of nausea. She has been admitted multiple times over the last several months with cellulitis to her leg. She has a history of psoriasis. Reports her pain is 6/10 in severity. Denies fever, or any additional symptoms. Complete ROS were reviewed and found to be within normal limits, except as docu mented in the HPI Current Medications Current Medications Current Medications Medications (Trade) Dose Ordered Sig/Flores Start Time Stop Time Status Last Admin Dose Admin Ondansetron HCl (Zofran) 4 mg 1X ONCE 05/03/19 13:15 05/03/19 13:16 DC 05/03/19 13:31 4 MG Sodium Chloride 500 ml @ 500 mls/hr 1X ONCE 05/03/19 13:15 05/03/19 14:14 05/03/19 13:32 500 MLS/HR Allergies Allergies Allergies Coded Allergies Type Severity Reaction Last Updated Verified methotrexate Allergy Severe Nausea and Vomiting 01/12/19 Yes Physical Exam Physical Exam Constitutional: Well developed, well nourished, no acute distress, non-toxic appearance. [] HENT: Normocephalic, atraumatic, bilateral external ears normal, oropharynx moist, no oral exudates, nose normal. [] Eyes: PERRLA, EOMI, conjunctiva normal, no discharge. [] Neck: Normal range of motion, no tenderness, supple, no stridor. [] Cardiovascular:Heart rate regular rhythm, no murmur [] Lungs & Thorax: Bilateral breath sounds clear to auscultation [] Extremities: Tenderness to L posterior knee, erythema and tenderness to L lower leg, psoriasis noted on foot. Neurologic: Alert and oriented X 3, normal motor function, normal sensory function, no focal deficits noted. [] Psychologic: Affect normal, judgement normal, mood normal. [] Current Patient Data Vital Signs Vital Signs Date Time Temp Pulse Resp B/P (MAP) Pulse Ox O2 Delivery O2 Flow Rate FiO2 05/03/19 12:23 98.3 100 20 152/74 (100) 94 Room Air 98.3 Lab Values Laboratory Tests Test 05/03/19 13:01 White Blood Count 10.4 x10^3/uL (4.0-11.0) Red Blood Count 4.56 x10^6/uL (3.50-5.40) Hemoglobin 12.2 g/dL (12.0-15.5) Hematocrit 36.8 % (36.0-47.0) Mean Corpuscular Volume 81 fL (79-100) Mean Corpuscular Hemoglobin 27 pg (25-35) Mean Corpuscular Hemoglobin Concent 33 g/dL (31-37) Red Cell Distribution Width 15.7 % (11.5-14.5) H Platelet Count 340 x10^3/uL (140-400) Neutrophils (%) (Auto) 73 % (31-73) Lymphocytes (%) (Auto) 18 % (24-48) L Monocytes (%) (Auto) 8 % (0-9) Eosinophils (%) (Auto) 0 % (0-3) Basophils (%) (Auto) 1 % (0-3) Neutrophils # (Auto) 7.7 x10^3/uL (1.8-7.7) Lymphocytes # (Auto) 1.9 x10^3/uL (1.0-4.8) Monocytes # (Auto) 0.8 x10^3/uL (0.0-1.1) Eosinophils # (Auto) 0.0 x10^3/uL (0.0-0.7) Basophils # (Auto) 0.1 x10^3/uL (0.0-0.2) Sodium Level 137 mmol/L (136-145) Potassium Level 4.1 mmol/L (3.5-5.1) Chloride Level 100 mmol/L (98-107) Carbon Dioxide Level 27 mmol/L (21-32) Anion Gap 10 (6-14) Blood Urea Nitrogen 13 mg/dL (7-20) Creatinine 0.8 mg/dL (0.6-1.0) Estimated GFR (Cockcroft-Gault) 72.0 BUN/Creatinine Ratio 16 (6-20) Glucose Level 126 mg/dL (70-99) H Lactic Acid Level 1.2 mmol/L (0.4-2.0) Calcium Level 8.9 mg/dL (8.5-10.1) Total Bilirubin 1.0 mg/dL (0.2-1.0) Aspartate Amino Transferase (AST) 27 U/L (15-37) Alanine Aminotransferase (ALT) 71 U/L (14-59) H Alkaline Phosphatase 76 U/L (46-116) Total Protein 7.5 g/dL (6.4-8.2) Albumin 3.8 g/dL (3.4-5.0) Albumin/Globulin Ratio 1.0 (1.0-1.7) Laboratory Tests 05/03/19 13:01 Laboratory Tests 05/03/19 13:01 EKG EKG [] Radiology/Procedures Radiology/Procedures [][facility] [address] [place], [place] [id number] IMAGING REPORT Signed PATIENT: AMU AYALA EACCOUNT: [id number] : 1955 LOCATION: ER AGE: 64 SEX: F EXAM STATUS: REG ER ORD. PHYSICIAN: SUAD MAHAN APRN REASON: erythema, tenderness posterior knee PROCEDURE: VENOUS LOWER EXTREMITY LEFT STUDY: US VENOUS LOWER EXTREMITY LEFT INDICATION: Erythema. Tenderness at the posterior knee. TECHNIQUE: Color-flow and pulsed wave duplex ultrasound with compression of venous structures of the left lower extremity. COMPARISON: 01/12/2019. FINDINGS: Duplex ultrasound with compression of the deep venous structures of the left lower extremity from the common femoral vein through the popliteal vein is negative for DVT. The posterior tibial and peroneal veins are segmentally visualized and patent where seen. Normal venous waveforms and augmentation are noted throughout. IMPRESSION: No deep venous thrombosis seen throughout the left lower extremity. Electronically signed by: CLEMENCIA QUINN MD (05/03/2019 1:38 PM) [id number] DICTATED and SIGNED BY: CLEMENCIA QUINN MD DATE: 05/03/19 1338 Course & Med Decision Making Course & Med Decision Making Pertinent Labs and Imaging studies reviewed. (See chart for details) Will get ultrasound of knee, and labs. Ultrasound is negative. Labs are unremarkable. Discussed results with patient and gave the risks and benefits of staying or outpatient treatment. Patient choose outpatient treatment. Will place on PO antibiotics. Will also prescribe nausea medication. Discussed with patient what to look for and when to return. Dragon Disclaimer Dragon Disclaimer This electronic medical record was generated, in whole or in part, using a voice recognition dictation system. Departure Departure Impression: Primary Impression: Cellulitis Disposition: HOME, SELF-CARE Condition: STABLE Referrals: CRYSTAL BETANCUR MD (PCP) Patient Instructions: Cellulitis Additional Instructions: Thank you for visiting [facility]. We appreciate you trusting us with your care. If any additional problems come up don't hesitate to return to visit us. Please follow up with your primary care provider so they can plan additional care if needed and know about the problem that you had. If symptoms worsen come back to the Emergency Department. Any concerning symptoms that start such as chest pain, shortness of air, weakness or numbness on one side of the body, running high fevers or any other concerning symptoms return to the ER. You have been prescribed an antibiotic today to help fight your infection. P reno take all of the antibiotic as directed. If after 48 hours the infection is not improving, please return for more care. If the infection worsens, return to ER for additional care. Scripts Ondansetron (ONDANSETRON ODT) 4 Mg Tab.rapdis 1 TAB PO PRN Q6-8HRS PRN for NAUSEA, #20 TAB Prov: SUAD MAHAN APRN 05/03/19 Cephalexin (KEFLEX) 500 Mg Capsule 1 CAP PO QID for 10 Days, #40 CAP 0 Refills Prov: SUAD MAHAN APRN 05/03/19 Problem Qualifiers Primary Impression: Cellulitis Site of cellulitis: extremity Site of cellulitis of extremity: lower ext remity Laterality: left Qualified Codes: L03.116 - Cellulitis of left lower limb SUAD MAHAN APRN May 03, 2019 13:08
[2019-05-03 13:15] LABS: BASO # 0.1 x10^3/uL (0.0-0.2); BASO % 1 % (0-3); EOS % 0 % (0-3); HEMATOCRIT 36.8 % (36.0-47.0); HEMOGLOBIN 12.2 g/dL (12.0-15.5); LYMPH # 1.9 x10^3/uL (1.0-4.8); LYMPH % 18 % (24-48); MEAN CORPUSCULAR HEMOGLOBIN 27 pg (25-35); MEAN CORPUSCULAR HGB CONC 33 g/dL (31-37); MEAN CORPUSCULAR VOLUME 81 fL (79-100); MONO # 0.8 x10^3/uL (0.0-1.1); MONO % 8 % (0-9); NEUT # 7.7 x10^3/uL (1.8-7.7); NEUT % 73 % (31-73); PLATELET COUNT 340 x10^3/uL (140-400); RED BLOOD COUNT 4.56 x10^6/uL (3.50-5.40); RED CELL DISTRIBUTION WIDTH 15.7 % (11.5-14.5); WHITE BLOOD COUNT 10.4 x10^3/uL (4.0-11.0)
[2019-05-03] MEDS ORDERED: IV NORMAL SALINE 500ML BAG 500 ML IV ONE (13:15)
[2019-05-03] MEDS ORDERED: ONDANSETRON PF 4 MG/2 ML VIAL. IV ONE (13:15)
[2019-05-03 13:26] LABS: CALCIUM 8.9 mg/dL (8.5-10.1); CREATININE 0.8 mg/dL (0.6-1.0); POTASSIUM 4.1 mmol/L (3.5-5.1)
[2019-05-03 13:32] LABS: ALBUMIN 3.8 g/dL (3.4-5.0); TOTAL PROTEIN 7.5 g/dL (6.4-8.2)
--- NOTE | 2019-05-03 13:41 | RAD ---
STUDY: US VENOUS LOWER EXTREMITY LEFT INDICATION: Erythema. Tenderness at the posterior knee. TECHNIQUE: Color-flow and pulsed wave duplex ultrasound with compression of venous structures of the left lower extremity. COMPARISON: 01/12/2019. FINDINGS: Duplex ultrasound with compression of the deep venous structures of the left lower extremity from the common femoral vein through the popliteal vein is negative for DVT. The posterior tibial and peroneal veins are segmentally visualized and patent where seen. Normal venous waveforms and augmentation are noted throughout. IMPRESSION: No deep venous thrombosis seen throughout the left lower extremity. Electronically signed by: CLEMENCIA QUINN MD (05/03/2019 1:38 PM) [id number]
[2019-05-03 14:07] VITALS: BP 126/67
[2019-05-03] MEDS ORDERED: ONDA4TAB12 PO (14:13)
[2019-05-03] MEDS ORDERED: CEPH-264 PO (14:13)
== END 2019-05-03 14:25 | disposition home or self-care (01) ==
LOC: ER 12:20
DX: L03.116 Cellulitis of left lower limb (principal); L53.9 Erythematous condition, unspecified; R11.0 Nausea; F41.9 Anxiety disorder, unspecified; E11.9 Type 2 diabetes mellitus without complications; K21.9 Gastro-esophageal reflux disease without esophagitis; L40.9 Psoriasis, unspecified; F17.200 Nicotine dependence, unspecified, uncomplicated; Z98.890 Other specified postprocedural states; Z88.8 Allergy status to other drugs, medicaments and biological substances
CPT/HCPCS: 36415; 80053; 83605; 85025; 87040; 93971; 96374; 99285; J2405; J7040

== ENCOUNTER → 2020-03-01 | Outpatient (CLI) | payer MEDICARE, BC ==
[~2020-03-01] MED LIST changes: +ONDA4TAB12 PO
--- NOTE | 2020-03-01 14:37 | KCIC ---
Study: CR KNEE LEFT 3V Indication: Medial left knee pain. Swelling. No known injury. Comparison: None. Findings: No acute fracture. Alignment is maintained. Mild medial femorotibial compartment joint space narrowing. Mild degenerative articular surface irregularity at the patellofemoral compartment involving the patella more so than the trochlea. No large effusion is apparent though there may be a small amount of fluid within the suprapatellar recess. Impression: 1. No acute osseous abnormality. 2. Mild medial femorotibial compartment joint space narrowing and mild arthrosis at the patellofemoral compartment. Electronically signed by: CLEMENCIA QUINN MD (03/01/2020 2:34 PM) [id number]
== END ==
LOC: KCIC 11:20
PROVIDERS: ATTEND Family Medicine
DX: M17.12 Unilateral primary osteoarthritis, left knee (principal)
CPT/HCPCS: 73562

== ENCOUNTER → 2020-07-06 | Outpatient (CLI) | payer MEDICARE, BC ==
--- NOTE | 2020-07-06 11:14 | RAD ---
INDICATION: Reason: lt leg pain/swelling / Spl. Instructions: / History: COMPARISON: None. TECHNIQUE: Grayscale, color and doppler ultrasound images were obtained of the left lower extremity v enous vasculature. LEFT: No thrombus identified in the common femoral vein, femoral vein, popliteal vein or visualized calf ve ins. IMPRESSION: * No thrombus identified in deep venous system of the left lower extremity. Electronically signed by: Germán Ventura MD (07/06/2020 11:11 AM) [id number]
== END ==
LOC: US 10:01
PROVIDERS: ATTEND Orthopaedic Surgery
DX: M25.562 Pain in left knee (principal); M79.662 Pain in left lower leg
CPT/HCPCS: 93971

== ENCOUNTER → 2020-07-09 | Outpatient (CLI) | payer MEDICARE, BC ==
--- NOTE | 2020-07-09 17:51 | KCIC ---
EXAMINATION: MRI LEFT KNEE WITHOUT IV CONTRAST CLINICAL HISTORY: Left anterior knee pain in recent weeks. NKI. TECHNIQUE: Multiplanar multisequential images obtained through the knee without intravenous contrast. COMPARISON: Left knee radiographs 03/01/2020 FINDINGS: MENISCI: Medial Meniscus: Complex tear in the body Lateral Meniscus: Intact. LIGAMENTS: ACL: Intact PCL: Intact MCL: Intact LCL Complex: Intact CARTILAGE: Medial Femoral Condyle: Moderate sized area(s) of predominantly high grade (greater than 50% thicknes s) cartilage loss and or fissuring with smaller area(s) of full thickness cartilage loss and or fissu ring with subchondral marrow reactive/cystic changes in the weightbearing portion of the condyle Medial Tibial Plateau: Within normal limits for age Lateral Femoral Condyle: Within normal limits for age Lateral Tibial Plateau: Within normal limits for age Patella: Moderate sized area(s) of predominantly high grade (greater than 50% thickness) cartilage lo ss and or fissuring with smaller area(s) of full thickness cartilage loss and or fissuring with subch ondral marrow reactive/cystic changes predominantly in the lateral facet Trochlea: Small area(s) of full thickness cartilage loss and or fissuring with subchondral marrow travis ctive/cystic changes in the medial trochlea TENDONS: Distal quadriceps and patellar tendons intact. Popliteus tendon intact. BONES AND MARROW: No evidence of acute. Minimal marrow edema in the lateral tibial metaphysis at the level of the proximal tibiofibular joint. MUSCLES: Mild edema in the posterior aspect of the partially visualized distal vastus medialis muscle , compatible with minimal muscle strain. Muscle bulk and signal intensity otherwise within normal pierre its. JOINT FLUID AND SYNOVIUM: Large joint effusion. Mild synovitis. Tiny Payton's cyst. IMPRESSION: Moderate chondral wear in the medial femoral condyle and patella. Complex medial meniscus tear. Electronically signed by: Luis Manuel Decker DO (07/09/2020 5:48 PM) [id number]
== END ==
LOC: KCIC MRI 12:55
PROVIDERS: ATTEND Orthopaedic Surgery
DX: S83.242A Other tear of medial meniscus, current injury, left knee, initial encounter (principal); X58.XXXA Exposure to other specified factors, initial encounter; Y93.89 Activity, other specified; Y92.89 Other specified places as the place of occurrence of the external cause; Y99.8 Other external cause status
CPT/HCPCS: 73721

== ENCOUNTER → 2020-07-30 | Outpatient (CLI) | payer MEDICARE, BC ==
--- NOTE | 2020-07-30 14:30 | KCIC ---
Bilateral digital screening mammograms: Reason for examination: Routine screening. Comparison is made to previous studies dated 09/19/2018 and 03/23/2015. Interpretation is made with the benefit of CAD. The skin and nipples show no abnormalities. No abnormal lymph nodes are seen. Bilateral implants natan in present. The breast parenchyma is predominantly fatty. (Breast density: Category A.) There are no dominant masses, suspicious calcifications or architectural distortions. Impression: No evidence of malignancy. Recommend routine screening. BI-RADS Category 1: Negative. "Our facility is accredited by the [employer] Mammography Program." This patient's information has been entered into a reminder system for the patient to be notified wit h the results of her examination and a target date for the next mammogram. Electronically signed by: Dot Quintero MD (07/30/2020 2:27 PM) [id number]
== END ==
LOC: KCIC DEXA 12:30
PROVIDERS: ATTEND Family Medicine
DX: Z13.820 Encounter for screening for osteoporosis (principal); Z12.31 Encounter for screening mammogram for malignant neoplasm of breast; Z78.0 Asymptomatic menopausal state
CPT/HCPCS: 77067

== ENCOUNTER 2020-08-13 05:59 | Day surgery (SDC) | payer MEDICARE, BC ==
[~2020-08-13] VITALS: Ht 147.3 cm; Wt 81.0 kg
[~2020-08-13 05:59] MED LIST changes: +BIOT1CAP3 PO; +CIDE300T PO; +ELDE1CAP PO; +OMEP40CA45 PO; +PEDI1TAB30 PO; +USTE90DI SQ; +[UNRECOGNIZED DRUG - OTHER] PO
[2020-08-13] MEDS ORDERED: IV RINGERS,LACTATED 1000ML 1,000 ML IV SCH (06:00)
[2020-08-13] MEDS ORDERED: MORPHINE SULFATE 2 MG/ML VIAL. IVP PRN (06:00)
[2020-08-13] MEDS ORDERED: PROCHLORPERAZINE 10 MG/2 ML VIAL. IVP PRN (06:00)
[2020-08-13] MEDS ORDERED: fentaNYL PF VIAL 100 MCG/2 ML VIAL IVP PRN ×2 (06:00)
[2020-08-13] MEDS ORDERED: HYDROmorphone 2 MG/ML VIAL IVP PRN (06:00)
[2020-08-13 06:34] VITALS: BP 170/78
[2020-08-13] MEDS ORDERED: IPRATRPIUM/ALBUTEROL 0.5/2.5MG 3 ML NEBU. NEB ONE (07:00)
[2020-08-13] MEDS ORDERED: LIDOCAINE 2% PF 5 ML VIAL. ONE (07:02)
[2020-08-13] MEDS ORDERED: MIDAZOLAM HCL/PF 2 MG/2 ML VIAL. ONE (07:02)
[2020-08-13] MEDS ORDERED: PROPOFOL 10 MG/ML (20ML) VIAL. IV ONE ×3 (07:02→08:45)
[2020-08-13] MEDS ORDERED: BUPIVACAINE-EPI 0.25% 30 ML VIAL KIT. ONE ×2 (07:09)
[2020-08-13] MEDS ORDERED: EPINEPHrine VIAL 30 MG/30 ML VIAL ONE (07:09)
--- NOTE | 2020-08-13 09:31 | PDOC1 ---
History and Physical Date of Admission Date of Admission DATE: 08/13/20 TIME: 09:24 Identification/Chief Complaint Chief Complaint Left knee pain medial meniscus tear Source Source: Chart review, Patient History of Present Illness History of Present Illness 65-year-old patient with left knee pain, minimal arthritis radiographically but meniscus tear by MRI. She has previously seen Dr. 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 She describes knee pain for years that has recently progressed. She describes swelling and pain in the knee that makes it difficult to walk or get out of a chair. Her swelling has been present for 3 months and she recently had an injection with her PCP about a month ago, although this was unhelpful. Her pain makes her "scream and cry" and makes sleeping difficult. We reviewed her MRI report together and discussing the risks, benefits, and alternatives to treatment. She is nervous about history as her sister flatlined during her last surgery, although she was successfully revived. Denies history of DVT. She does vape. PMHx of psoriasis (on stelara injection once every 12 weeks with derm) and left leg cellulitis 3 times for which she was hospitalized 3 times in a row, about a year ago. She is a smoker (vaping). No history of DVT's although her cousin gets them very often. No hormone replacement or cancer. Past Medical History Past Medical History Cellulitis, psoriasis Past Surgical History Past Surgical History breast reduction 1970s breast reconstruction 1970s Family History Family History cousin with blood clots Father: Stomach Cancer, diagnosed with Diabetes Mother: diagnosed with Hypertension Social History Smoke: <1 pack per day ALCOHOL: none Current Medications Current Medications Current Medications Fentanyl Citrate (Fentanyl 2ml Vial) 25 mcg PRN Q5MIN PRN IVP MILD PAIN 1-3; Start 08/13/20 at 06:00; Stop 08/14/20 at 05:59 Fentanyl Citrate (Fentanyl 2ml Vial) 50 mcg PRN Q5MIN PRN IVP MODERATE PAIN 4- 6; Start 08/13/20 at 06:00; Stop 08/14/20 at 05:59 Morphine Sulfate (Morphine Sulfate) 1 mg PRN Q10MIN PRN IVP SEVERE PAIN 7-10; Start 08/13/20 at 06:00; Stop 08/14/20 at 05:59 Ringer's Solution 1,000 ml @ 30 mls/hr Q24H IV Last administered on 08/13/20at 06:51; Start 08/13/20 at 06:00; Stop 08/13/20 at 17:59 Hydromorphone HCl (Dilaudid) 0.5 mg PRN Q10MIN PRN IVP SEVERE PAIN 7-10, 2nd CHOICE; Start 08/13/20 at 06:00; Stop 08/14/20 at 05:59 Prochlorperazine Edisylate (Compazine) 5 mg PACU PRN PRN IVP NAUSEA, MRX1; Start 08/13/20 at 06:00; Stop 08/14/20 at 05:59 Cefazolin Sodium/ Dextrose 50 ml @ 100 mls/hr 1X PREOP PRN IV PRIOR TO PROCEDURE Last administered on 08/13/20at 07:59; Start 08/13/20 at 06:00; Stop 08/13/20 at 18:00 Albuterol/ Ipratropium (Duoneb) 3 ml 1X ONCE NEB Last administered on 08/13/20at 06:34; Start 08/13/20 at 07:00; Stop 08/13/20 at 07:01; Status DC Midazolam HCl (Versed) 2 mg STK-MED ONCE .ROUTE ; Start 08/13/20 at 07:02; Stop 08/13/20 at 07:03; Status DC Propofol (Diprivan) 200 mg STK-MED ONCE IV ; Start 08/13/20 at 07:02; Stop 08/13/20 at 07:03; Status DC Lidocaine HCl (Lidocaine Pf 2% Vial) 5 ml STK-MED ONCE .ROUTE ; Start 08/13/20 at 07:02; Stop 08/13/20 at 07:03; Status DC Epinephrine HCl (Adrenalin) 30 mg STK-MED ONCE .ROUTE Last administered on 08/13/20at 08:19; Start 08/13/20 at 07:09; Stop 08/13/20 at 07:09; Status DC Bupivacaine HCl/ Epinephrine Bitart (Sensorcain-Epi 0.25% Kit) 30 ml STK-MED ONCE .ROUTE Last administered on 08/13/20at 08:19; Start 08/13/20 at 07:09; Stop 08/13/20 at 07:09; Status DC Bupivacaine HCl/ Epinephrine Bitart (Sensorcain-Epi 0.25% Kit) 30 ml STK-MED ONCE .ROUTE Last administered on 08/13/20at 08:19; Start 08/13/20 at 07:09; Stop 08/13/20 at 07:09; Status DC Propofol (Diprivan) 200 mg STK-MED ONCE IV ; Start 08/13/20 at 08:08; Stop 08/13/20 at 08:08; Status DC Propofol (Diprivan) 200 mg STK-MED ONCE IV ; Start 08/13/20 at 08:45; Stop 08/13/20 at 08:45; Status DC Active Scripts Active Reported Apple Cider Vinegar (Cider Vinegar) 300 Mg Tablet 300 Mg PO DAILY Black Elderberry 575 mg Cap (Elderberry Fruit and Flower) 1 Each Capsule 1 Each PO DAILY Gummies Girls' Multivitamins (Pediatric Multivit Comb No.29) 1 Each Tab.chew 1 Each PO DAILY Biotin 1 Mg Capsule 1 Cap PO DAILY 30 Days [vitamin D gummie] PO DAILY Stelara (Ustekinumab) 90 Mg/1 Ml Disp.syrin 90 Mg SQ [id number] Omeprazole 40 Mg Capsule.dr 1 Cap PO DAILY Zoloft (Sertraline Hcl) 25 Mg Tablet 1 Tab PO DAILY Allergies Allergies: Coded Allergies: methotrexate (Verified Allergy, Severe, Nausea and Vomiting, 08/13/20) ROS Review of System OPHTHALMOLOGY: Blurred vision none. Double vision denies. Change in vision none. ENT: Hearing loss none. Change in voice denies. Rhinorrhea none. CARDIOLOGY: Palpitations none. Shortness of breath denies. Chest pain denies. CONSTITUTIONAL: Fever denies. Chills denies. Weight gain denies. Weakness none. weight loss denies. Fatigue none. GASTROENTEROLOGY: Diarrhea denies. Vomiting none. Dysphagia none. UROLOGY: Voiding normally yes. Hematuria none. MUSCULOSKELETAL: Chronic back or neck pain denies. Swelling of the feet, hands, ankles and /or legs denies. Joint pain admits. Tingling/numbness no. DERMATOLOGY: Rash admits. Lumps none. NEUROLOGY: Dizziness/lightheadedness denies. Double vision, temporary blindness denies. Tingling/numbness none. PSYCHOLOGY: Change in mood or personality denies. Memory loss none. ENDOCRINOLOGY: Obesity denies. Fatigue none. Weight loss none. HEMATOLOGY/LYMPH: Hepatitis denies. Enlarged lymph nodes denies. Physical Exam General: Alert, Cooperative HEENT: Atraumatic Lungs: Normal air movement Heart: RRR Abdomen: Soft Extremities: No clubbing, No cyanosis, Normal pulses, Other (The LEFT knee shows an antalgic gait. There is normal alignment. No masses. Small effusion. Tenderness on the joint lines with positive medial and lateral Eddie's test. Tender to her calf with a positive Neyda's sign. Range of motion is 0-100 degrees. There is crepitus with range of motion, and pain at the extremes of motion. The knee is stable to varus and valgus stress without subluxation or laxity. Muscle strength is slightly weak for the quadriceps 4+/5 which may be due to pain or avoidance, and does not seem neurogenic, and the muscle tone and bulk is slightly decreased. The hamstring strength is 5/5. The skin is normal with no scars, rashes, lesions or ulcers. Light touch sensation is intact. No edema and no varicosities. Dorsalis pedis pulse is intact and capillary refill is normal.) Vitals Vitals Vital Signs Date Time Temp Pulse Resp B/P (MAP) Pulse Ox O2 Delivery O2 Flow Rate FiO2 08/13/20 09:18 60 18 105/47 100 Nasal Cannula 4 08/13/20 09:01 98.0 98.0 Images Images [facility] [address] [place] [address] IMAGING REPORT Signed PATIENT: MAU AYALA ACCOUNT: [id number] : 1955 LOCATION: [facility] MRI AGE: 65 SEX: F EXAM STATUS: REG CLI ORD. PHYSICIAN: UGO MORGAN MD REASON: LEFT KNEE PAIN PROCEDURE: LOWER EXT JOINT WO LT EXAMINATION: MRI LEFT KNEE WITHOUT IV CONTRAST CLINICAL HISTORY: Left anterior knee pain in recent weeks. NKI. TECHNIQUE: Multiplanar multisequential images obtained through the knee without intravenous contrast. COMPARISON: Left knee radiographs 03/01/2020 FINDINGS: MENISCI: Medial Meniscus: Complex tear in the body Lateral Meniscus: Intact. LIGAMENTS: ACL: Intact PCL: Intact MCL: Intact LCL Complex: Intact CARTILAGE: Medial Femoral Condyle: Moderate sized area(s) of predominantly high grade (greater than 50% thickness) cartilage loss and or fissuring with smaller area(s) of full thickness cartilage loss and or fissuring with subchondral marrow reactive/cystic changes in the weightbearing portion of the condyle Medial Tibial Plateau: Within normal limits for age Lateral Femoral Condyle: Within normal limits for age Lateral Tibial Plateau: Within normal limits for age Patella: Moderate sized area(s) of predominantly high grade (greater than 50% thickness) cartilage loss and or fissuring with smaller area(s) of full thickness cartilage loss and or fissuring with subchondral marrow reactive/cystic changes predominantly in the lateral facet Trochlea: Small area(s) of full thickness cartilage loss and or fissuring with subchondral marrow reactive/cystic changes in the medial trochlea TENDONS: Distal quadriceps and patellar tendons intact. Popliteus tendon intact. BONES AND MARROW: No evidence of acute. Minimal marrow edema in the lateral tibial metaphysis at the level of the proximal tibiofibular joint. MUSCLES: Mild edema in the posterior aspect of the partially visualized distal vastus medialis muscle, compatible with minimal muscle strain. Muscle bulk and signal intensity otherwise within normal limits. JOINT FLUID AND SYNOVIUM: Large joint effusion. Mild synovitis. Tiny Payton's cyst. IMPRESSION: Moderate chondral wear in the medial femoral condyle and patella. Complex medial meniscus tear. Electronically signed by: Luis Manuel Decker DO (07/09/2020 5:48 PM) [id number] [address] [address] IMAGING REPORT Signed PATIENT: MAU AYALA ACCOUNT: [id number] : 1955 LOCATION: [facility] AGE: 65 SEX: F EXAM STATUS: REG CLI ORD. PHYSICIAN: ANA VOGT MD REASON: Medial Left knee pain, swelling a couple of weeks, no known injury. PROCEDURE: KNEE LEFT 3V Study: CR KNEE LEFT 3V Indication: Medial left knee pain. Swelling. No known injury. Comparison: None. Findings: No acute fracture. Alignment is maintained. Mild medial femorotibial compartment joint space narrowing. Mild degenerative articular surface irregularity at the patellofemoral compartment involving the patella more so than the trochlea. No large effusion is apparent though there may be a small amount of fluid within the suprapatellar recess. Impression: 1. No acute osseous abnormality. 2. Mild medial femorotibial compartment joint space narrowing and mild arthrosis at the patellofemoral compartment. Electronically signed by: CLEMENCIA QUINN MD (03/01/2020 2:34 PM) [id number] DICTATED and SIGNED BY: CLEMENCIA QUINN MD DATE: 03/01/20 1434 VTE Prophylaxis Ordered VTE Prophylaxis Devices: Yes VTE Pharmacological Prophylaxi: Yes Assessment/Plan Assessment/Plan Her MRI shows a medial meniscus tear. We reviewed her report together and discussed the natural history of the condition along with risks, benefits, and alternatives to treatment. Given her milder DJD knee replacement may be warranted in the next 5-10 years, but she really denies any arthritic symptoms and if this were my knee, I would opt for an arthroscopic procedure, especially at her BMI. We discussed potential risks of arthroscopic surgery, including risks of bleeding, infection, progressive arthritis, blood clots, or other pote ntial surgical or anesthetic complications. We also discussed postoperative treatment and expectations including possible progression of arthritis following knee arthroscopy. All of her questions were answered and she desires to proceed with surgery. She is here today for elective left knee arthroscopy and meniscectomy. We discussed a spinal anesthetic due to her sisters recent o perative complications. Justifications for Admission Other Justification UGO MORGAN MD August 13, 2020 09:31
--- NOTE | 2020-08-13 09:35 | PDOC4 ---
Operative Note Operative Note Date of Procedure: August 13, 2020 Preoperative Diagnosis: left knee medial meniscus tear Postoperative Diagnosis: * complex tear of medial meniscus, current injury, left knee, initial encounter S83.232A * complex tear of lateral meniscus, current injury, left knee, initial encounter S83.272A Procedures Performed: * left knee arthroscopy, surgical, with meniscectomy, medial AND lateral, including meniscal shaving, including debridement/shaving of articular cartilage (chondroplasty) CPT 59089 Surgeon: Ugo Gallo MD Diet Technician Registered: DAHLIA Hines Anesthesia: -A-g-f-e-r-a-l- Spinal (corrected by JNV on 08/13/20 at 11:34 am.) Estimated Blood Loss: 10 mL Specimens: none Drains: none Complications: none Tourniquet time: 35 minutes at 300 mm Hg Indications for Procedure: The patient is a 65-year-old with left knee pain, unrelieved with nonoperative treatment. Exam and MRI are consistent with a meniscus tear. We talked about the risks and benefits of proceeding with an arthroscopic procedure. We talked about potential risks of ongoing pain, progressive arthritis, bleeding, infection, blood clots, or other potential surgical or anesthetic complications. All of the patient's questions about surgery were answered and they desired to proceed. Written consent was obtained. Description of Operation: The patient was identified in the preoperative holding area. The correct left knee was marked by me. The patient was taken to the operating room, where a -h-d-h-e-r-a-l- spinal (corrected by JNV on 08/13/20 at 11:34 am.) anesthetic was used. Preoperative antibiotics were given intravenously. A time-out procedure was performed. A tourniquet was placed on the upper thigh. Local anesthetic 20 mL of 0.25% bupivacaine was injected using sterile technique into the knee joint. The limb was prepared circumferentially with ChloraPrep solution and sterile waterproof arthroscopy drapes were applied. The limb was exsanguinated with an Esmarch bandage and the tourniquet was inflated. Lateral and medial arthroscopy portals were established. The medial meniscus showed a complex unrepairable tear with unstable flaps. 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 The lateral tibiofemoral joint showed a complex unrepairable internal surface lateral meniscus tear at the middle one-third of the meniscus, and a meniscectomy was performed with basket forceps and the motorized shaver back to a smooth stable base.The lateral articular surfaces showed chondromalacia Outerbridge grade III, so a shaving chondroplasty was performed removing loose unstable fragments of articular cartilage. The patellofemoral joint showed chondromalacia Outerbridge grade III, and a shaving chondroplasty was performed removing unstable fragments of cartilage with the shaver. The suprapatellar pouch, medial and lateral gutters were free of loose bodies. Copious irrigation was used to drain all meniscal and chondral fragments, and the knee was drained of fluid. The portals were closed with #3-0 Prolene interrupted sutures. Additional local anesthetic, 30 mL of 0.25% bupivacaine with epinephrine was injected. A bulky sterile dressing was applied and the tourniquet was released. Needle and sponge counts were correct and there were no apparent complications. UGO GALLO MD August 13, 2020 09:35
[2020-08-13] MEDS ORDERED: ePHEDrine PF IN SALINE 50 MG/10 ML SYRINGE. IV ONE (09:37)
[2020-08-13] MEDS ORDERED: PHENYLEPHRINE in 0.9% NACL PF 1 MG/10 ML SYRINGE. IV ONE (09:37)
[2020-08-13] MEDS ORDERED: HYDROcodone/APAP 7.5/325MG 1 TAB TABLET PO ONE (10:15)
[2020-08-13] MEDS ORDERED: PROMETHAZINE 12.5 MG TABLET. PO ONE (10:15)
[2020-08-13 11:00] VITALS: BP 119/56
== END 2020-08-13 12:39 | disposition home or self-care (01) ==
LOC: SURG 05:59
PROVIDERS: ATTEND Orthopaedic Surgery
DX: S83.232A Complex tear of medial meniscus, current injury, left knee, initial encounter (principal); S83.272A Complex tear of lateral meniscus, current injury, left knee, initial encounter; K21.9 Gastro-esophageal reflux disease without esophagitis; E66.9 Obesity, unspecified; M19.90 Unspecified osteoarthritis, unspecified site; F41.9 Anxiety disorder, unspecified; F32.9 Major depressive disorder, single episode, unspecified; F17.210 Nicotine dependence, cigarettes, uncomplicated; Z79.899 Other long term (current) drug therapy; Z98.890 Other specified postprocedural states; Z88.8 Allergy status to other drugs, medicaments and biological substances; X58.XXXA Exposure to other specified factors, initial encounter; Y93.89 Activity, other specified; Y92.89 Other specified places as the place of occurrence of the external cause; Y99.8 Other external cause status
CPT/HCPCS: 29880; 94640; 97110; 97116; 97162; A4930; C1755; J0171; J0690; J2250; J2370; J2704; Q0169